=== PATIENT | female | born 1940 ===

== ENCOUNTER 2017-01-27 05:51 | Day surgery (SDC) | payer MEDICARE, MEDICAID ==
[2017-01-21 11:17] VITALS: BMI 28.1
[2017-01-27] MEDS ORDERED: ceFAZolin IV 1 gm in Dextrose 1 GM/50 ML BAG IVPB ONE (07:53)
[2017-01-27] MEDS ORDERED: Bupivacaine HCl 0.5% PF (10 ml) Inj ONE ×3 (07:54→08:57)
[2017-01-27] MEDS ORDERED: Lidocaine 2% Inj (20ml) ONE (07:54)
[2017-01-27] MEDS ORDERED: Propofol 10 mg/ml Inj (20 ML) ONE (08:08)
[2017-01-27] MEDS ORDERED: Midazolam 2 MG/2 ML VIAL ONE (08:08)
--- NOTE | 2017-01-27 08:08 | CP.PCM.PN ---
Objective - Vital Signs/Intake and Output Vital Signs (last 24 hours): Temp Pulse Resp BP Pulse Ox 97.9 F 59 L 18 141/66 97 01/27/17 06:11 01/27/17 06:11 01/27/17 06:11 01/27/17 06:11 01/27/17 06:11
[2017-01-27] MEDS ORDERED: Lactated Ringer's 1,000 ML IV ONE (08:10)
[2017-01-27] MEDS ORDERED: Dexamethasone 4 mg/1 ml ONE (08:53)
[2017-01-27] MEDS ORDERED: Lidocaine 2% w Epi 1:100,000 Inj IJ ONE (08:58)
--- NOTE | 2017-01-27 09:23 | PCM.SURG1 ---
Surgeon's Initial Post Op Note - Surgeon's Notes Surgeon: Dr. Diane Butt DPM Lawn Mower Operator: Dr. Aminata Carrasco DPM PGY-2 Type of Anesthesia: MAC, Local Anesthesia Administered By: Dr. Kc Pre-Operative Diagnosis: painful hardware right and painful hallux rigidus deformity right metatarsophalangeal joint Operative Findings: see operative report Post-Operative Diagnosis: same Operation Performed: removal of painful hardware and cheilectomy of 1st metatarsal right foot with excision of bone and soft tissue Specimen/Specimens Removed: bone, soft tissue, screw x 1 Estimated Blood Loss: EBL {In ML}: 5 Blood Products Given: N/A Drains Used: No Drains Post-Op Condition: Good Date of Surgery/Procedure: 01/27/17 Time of Surgery/Procedure: 08:00
[2017-01-27] MEDS ORDERED: HYDROmorphone 0.5 mg/0.5 ml ISec IVP PRN (09:25)
[2017-01-27] MEDS ORDERED: Acetaminophen-Codeine 300/30 mg Tab PO PRN (09:48)
[2017-01-27 11:04] VITALS: RESP 18
[2017-01-27 11:38] VITALS: BP 141/72; PULSE 58; TEMP 98.3; O2SAT 98
--- NOTE | 2017-01-27 16:39 | RAD ---
PROCEDURE: Right Foot Radiographs. HISTORY: s/p right foot surgry COMPARISON: 12/30/2016 FINDINGS: BONES: Partial resection medial 1st metatarsal. Prior screw has been removed here JOINTS: Arthropathic changes pronounced at the 2nd metatarsal phalangeal joint. 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
--- NOTE | 2017-01-28 09:33 | OP ---
PROCEDURE DATE: 01/27/2017 PREOPERATIVE DIAGNOSES: 1. Painful hardware of right first metatarsophalangeal joint. 2. Painful hallux rigidus deformity, right foot metatarsophalangeal joint. POSTOPERATIVE DIAGNOSES: 1. Painful hardware of right first metatarsophalangeal joint. 2. Painful hallux rigidus deformity, right foot metatarsophalangeal joint. PROCEDURES: 1. Removal of painful hardware from first metatarsal, right foot. 2. Cheilectomy of first metatarsal, right foot. SURGEON: Derek Butt DPM MEDICAL GENETICS DIRECTOR: Sepideh Carrasco DPM, PGY2. TYPE OF ANESTHESIA: MAC IV sedation with local. ANESTHESIA ADMINISTERED BY: Dr. Diego. INDICATIONS: The patient is a 76-year-old female with the above mentioned diagnoses. The patient has exhausted all conservative treatment measures at this time and now require surgical intervention. The patient signed the consent after careful explanation of all risks, benefits, complications, and alternatives for the surgical procedure. No guarantees were given nor implied. N.p.o status was confirmed prior to bringing the patient in to the operating room. The patient received 1 g of Ancef IV prior to the beginning of the procedure. PREPARATION: The patient was brought in to the operating room, placed in the operating table in supine position. A timeout was performed for identification of the correct patient and procedure. After induction of IV sedation,a local block was performed to the right foot consisting of a 1:1 mixture of 1% lidocaine plain and 0.5% Marcaine plain, 20 mL in total given. The right foot was then prepped and draped in the normal sterile manner. A well-padded Pneumatic ankle tourniquet was applied to the patient's right ankle prior to draping and was then inflated to 250 mmHg. The foot was then exsanguinated with Esmarch bandage and the procedure began. DESCRIPTION OF PROCEDURE: Procedure #1: removal painful hardware 1st metatarsal right foot Attention was then directed to the first metatarsophalangeal joint of the right foot and approximately 6 cm linear longitudinal incision was then made over the dorsal aspect of the first metatarsophalangeal joint using a #15 blade. The incision was then deepened to the subcutaneous tissues using sharp and blunt dissection down to the level of the capsule. Care was also made to create an incision, which was medial and parallel to the extensor hallucis longus tendon and involve the contour of the deformity. At this time, a linear type capsulotomy was performed over the dorsal aspect of the first metatarsophalangeal joint. The periosteal and capsular structures were then carefully dissected free of their osseous attachments and reflected medially and laterally thus exposing the head of the first metatarsal into the operative site. At this time, one Synthes 2-0 screw was then identified at the level of bone. Using the freer elevator, the soft tissue was then further dissected from the hardware and the screw was then removed from the first metatarsal using a R screwdriver. The screw was then removed from the bone and passed off the operative field and sent to pathology. Procedure #2: Cheilectomy at first metatarsal, right foot. Next, attention was then directed to the medial aspect of the first metatarsal head of the right foot utilizing a sagittal bone saw. The medial hypertrophic prominence of the medial aspect of the first metatarsal was then resected and passed from the operative field. The sagittal saw was then utilized to feather the dorsal distal aspect of the first metatarsal. A rasp was then utilized to just smooth any sharp or roughened edges. Correction of the deformity was assessed at this time and was noted to be excellent with significantly increased range of motion of the first metatarsophalangeal joint. The surgical site was then flushed with copious amounts of sterile normal saline solution. The periosteal and capsular structures were then re-approximated utilizing #2-0 Vicryl suture. The subcuticular tissues were then re-approximated using 3-0 Vicryl. The skin was then re-approximated using #4-0 nylon in an interrupted horizontal mattress suture techniques. 2 ml of epinephrine diluted with normal saline was then injected into the incision site. Next, 1 mL consisting of dexamethasone 4 mg was injected into the incision site followed by an additional 10 mL of 0.5% Marcaine plain in a block fashion to the first metatarsophalangeal joint. The surgical site was then dressed with Xeroform, 4x4, Kerlix, and an WADE compressive bandage. POSTOPERATIVE CONDITION: The patient tolerated the anesthesia and procedure well and was escorted to recovery room with vital signs stable and neurovascular status intact to the right foot. The patient will be weightbearing as tolerated in a surgical shoe. She is to keep the dressing clean, dry, and intact. She is to take pain medication as directed and she is to followup with Dr. Butt in the office within 1 week. Sepideh Carrasco DPM Derek Butt DPM MTDIvonne
== END 2017-01-27 11:30 | disposition home or self-care (01) ==
LOC: C.SDS 05:51
PROVIDERS: ATTEND Podiatrist
DX: M20.21 Hallux rigidus, right foot (principal); Z47.2 Encounter for removal of internal fixation device; T84.84XA Pain due to internal orthopedic prosthetic devices, implants and grafts, initial encounter
CPT/HCPCS: 20670; 28289; 73620; 88300; 88304; J0690; J1100; J2250; J2704; J3010; J7120

== ENCOUNTER 2017-04-26 15:41 | Emergency (ER) | payer MEDICARE, MEDICAID ==
[2017-04-26 15:41] VITALS: BMI 28.1
[2017-04-26 15:51] VITALS: O2SAT 95
[2017-04-26] MEDS ORDERED: Albuterol-Ipratrop 3 mg / 0.5 (3 ml) UD IH STA (17:31)
[2017-04-26] MEDS ORDERED: Albuterol-Ipratrop 3 mg / 0.5 (3 ml) UD ONE (17:58)
--- NOTE | 2017-04-26 18:33 | RAD ---
HISTORY: Cough COMPARISON: Chest x-ray performed 01/21/17 TECHNIQUE: Chest PA and lateral FINDINGS: Examination limited by habitus. LUNGS: Bilateral hilar prominence. Mildly prominent interstitial markings. Small nodular densities at the right lung base, possibly calcified granulomas. Please note that chest x-ray has limited sensitivity for the detection of pulmonary masses. PLEURA: No significant pleural effusion identified. No definite pneumothorax . CARDIOVASCULAR: Cardiomegaly. Ectatic aorta. OSSEOUS STRUCTURES: Osseous demineralization. Degenerative changes. Scoliosis. VISUALIZED UPPER ABDOMEN: Unremarkable. OTHER FINDINGS: None. IMPRESSION: Bilateral hilar prominence. Mildly prominent interstitial markings. Small nodular densities, right lung base possibly calcified granulomas. Cardiomegaly. Ectatic aorta.
--- NOTE | 2017-04-26 18:41 | C.PDOC ---
Time Seen by Provider: 04/26/17 17:06 Chief Complaint (Nursing): Cough, Cold, Congestion History Per: Patient Onset/Duration Of Symptoms: Days (1) Current Symptoms Are (Timing): Still Present Associated Symptoms: Cough, Myalgias, Nasal Congestion Severity: Moderate Recent travel outside of the [place]: No Additional History Per: Prior Records Past Medical History Reviewed: Historical Data, Nursing Documentation, Vital Signs Vital Signs: Last Vital Signs Temp 99 F 04/26/17 15:47 Pulse 100 H 04/26/17 15:47 Resp 18 04/26/17 15:47 BP 119/76 04/26/17 15:47 Pulse Ox 95 04/26/17 15:47 - Medical History PMH: Anemia, Arthritis, Asthma (NEVER HOSPITALIZED), Back Problems (CERVICAL RADICULOPATHY), Gastritis, HTN, Osteoporosis Surgical History: Endoscopy - [facility] Procedures CLOSED ENDOSCOPIC BIOPSY OF LARGE INTESTINE (09/26/14) ESOPHAGOGASTRODUODENOSCOPY [EGD] W/CLOSED BIOPSY (09/26/14) EXCISION OF DUODENUM, ENDO, DIAGN (04/17/15) EXCISION OF STOMACH, ENDO, DIAGN (04/17/15) INSPECTION OF LOWER INTESTINAL TRACT, ENDO (04/17/15) PACKED CELL TRANSFUSION (09/26/14) TRANSFUSE NONAUT RED BLOOD CELLS IN PERIPH VEIN, PERC (04/22/16) Family History: States: Diabetes - Social History Hx Tobacco Use: No Hx Alcohol Use: No Hx Substance Use: No - Immunization History Hx Tetanus Toxoid Vaccination: No Hx Influenza Vaccination: No Hx Pneumococcal Vaccination: No Review Of Systems Except As Marked, All Systems Reviewed And Found Negative. Constitutional: Positive for: Fever (subjective?) ENT: Positive for: Nose Congestion, Throat Pain (mild) Respiratory: Positive for: Cough. Negative for: Shortness of Breath, Hemoptysis Gastrointestinal: Negative for: Vomiting, Abdominal Pain, Diarrhea Genitourinary: Negative for: Dysuria Musculoskeletal: Negative for: Neck Pain Skin: Negative for: Rash Neurological: Negative for: Weakness, Numbness, Seizures Physical Exam - Physical Exam Appears: Non-toxic, No Acute Distress Skin: Normal Color, Warm, Dry, No Rash Head: Atraumatic, Normacephalic Eye(s): bilateral: Normal Inspection, PERRL, EOMI Oral Mucosa: Moist, No Drooling, No Trismus Throat: Erythema, No Exudate, No Drooling, No Mass Neck: Normal ROM, Supple Cardiovascular: Rhythm Regular Respiratory: Normal Breath Sounds, No Accessory Muscle Use Gastrointestinal/Abdominal: Soft, No Tenderness Back: No CVA Tenderness Extremity: Normal ROM Neurological/Psych: Oriented x3, Normal Motor, Normal Sensation ED Course And Treatment O2 Sat by Pulse Oximetry: 95 Pulse Ox Interpretation: Normal - Radiology CXR: Viewed By Me, Read By Radiologist CXR Interpretation: Yes: No Acute Disease, Cardiomegaly Reassessment Condition: Improved Disposition Counseled Patient/Family Regarding: Studies Performed, Diagnosis, Need For Followup, Rx Given - Disposition Referrals: Raghav Putnam MD [Staff Provider] - Disposition: HOME/ ROUTINE Disposition Time: 18:41 Condition: STABLE Additional Instructions: Follow up with your doctor. Return to the ER if you develop high fever, shortness of breath, worsening of symptoms or if you have any other concerns. Prescriptions: Acetaminophen [Tylenol Extra Strength] 2 tab PO Q6 PRN #30 tablet PRN Reason: Pain, Moderate (4-7) Albuterol HFA [Ventolin HFA 90 mcg/actuation (8 g)] 2 puff IH Q4 PRN #1 unit PRN Reason: Cough And Congestion Benzonatate 200 mg PO TID PRN #15 capsule PRN Reason: Cough Instructions: Cold Symptoms (ED) - Clinical Impression Clinical Impression: Upper respiratory infection
[2017-04-26 18:51] VITALS: BP 111/72; PULSE 85; RESP 20; TEMP 99.1
--- NOTE | 2017-04-28 13:13 | CARD ---
APPROVED REPORT EKG Measurement Heart [id number] <Conclusion> Sinus tachycardia with frequent premature ventricular complexes Otherwise normal ECG
== END 2017-04-26 19:00 | disposition home or self-care (01) ==
LOC: C.ER 15:41
DX: J06.9 Acute upper respiratory infection, unspecified (principal)

== ENCOUNTER 2018-04-20 02:23 | Inpatient (IN) | payer MEDICARE, MEDICAID ==
[2018-04-20 02:24] VITALS: BMI 28.1
--- NOTE | 2018-04-20 03:35 | C.PDOC ---
History Of Present Illness 77 year old female presents to the ER with a complaint of dizziness described as vertigo intermittently for the past few weeks that worsened today, associated with mild SOB and leg edema. Patient states she does not feel well. Denies fever, chills, or chest pain. Chief Complaint (Nursing): Dizziness/Lightheaded History Per: Patient History/Exam Limitations: no limitations Onset/Duration Of Symptoms: Days, Intermittent Episodes Current Symptoms Are (Timing): Still Present Seizure Or Post-ictal Symptoms: None Possible Causative Factor(s): Vertigo Fall Associated With With Symptoms: No Recent travel outside of the [place]: No - Symptoms Of CVA Associated Symptoms: denies: Impaired Speech, Seizure Activity, New Vision Deficit(Left), New Vision Deficit(Right), Decreased Ability To Walk, New Confusion Past Medical History Reviewed: Historical Data, Nursing Documentation, Vital Signs Vital Signs: Last Vital Signs Temp 98.1 F 04/20/18 02:29 Pulse 70 04/20/18 02:29 Resp 22 04/20/18 02:29 BP 147/67 04/20/18 02:29 Pulse Ox 95 04/20/18 02:29 - Medical History PMH: Anemia, Arthritis, Asthma (NEVER HOSPITALIZED), Back Problems (CERVICAL RADICULOPATHY), Gastritis, HTN, Osteoporosis Denies: Chronic Kidney Disease Surgical History: Endoscopy - [facility] Procedures CLOSED ENDOSCOPIC BIOPSY OF LARGE INTESTINE (09/26/14) ESOPHAGOGASTRODUODENOSCOPY [EGD] W/CLOSED BIOPSY (09/26/14) EXCISION OF DUODENUM, ENDO, DIAGN (04/17/15) EXCISION OF STOMACH, ENDO, DIAGN (04/17/15) INSPECTION OF LOWER INTESTINAL TRACT, ENDO (04/17/15) PACKED CELL TRANSFUSION (09/26/14) TRANSFUSE NONAUT RED BLOOD CELLS IN PERIPH VEIN, PERC (04/22/16) Family History: States: Diabetes - Social History Hx Tobacco Use: No Hx Alcohol Use: No Hx Substance Use: No - Immunization History Hx Tetanus Toxoid Vaccination: No Hx Influenza Vaccination: No Hx Pneumococcal Vaccination: No Review Of Systems Constitutional: Negative for: Fever, Chills Cardiovascular: Negative for: Chest Pain, Palpitations Respiratory: Positive for: Shortness of Breath (Mild). Negative for: Cough Gastrointestinal: Negative for: Nausea, Vomiting Musculoskeletal: Positive for: Other (Leg edema) Neurological: Positive for: Dizziness Physical Exam - Physical Exam Appears: Non-toxic, No Acute Distress Skin: Normal Color, Warm, Dry Head: Atraumatic, Normacephalic Eye(s): bilateral: Normal Inspection, PERRL, EOMI Nose: Normal Oral Mucosa: Moist Throat: Normal, No Erythema, No Exudate Neck: Normal, Supple Chest: Symmetrical, No Tenderness Cardiovascular: Rhythm Regular Respiratory: Normal Breath Sounds, No Rales, No Rhonchi, No Wheezing Gastrointestinal/Abdominal: Soft, No Tenderness Extremity: Other (Lower extremities with 2+ pitting edema) Neurological/Psych: Oriented x3, Normal Speech, Normal Motor, Normal Sensation, Other (No focal deficit) ED Course And Treatment - Laboratory Results Result Diagrams: 04/20/18 03:51 04/20/18 03:51 ECG: Interpreted By Me, Viewed By Me ECG Rhythm: Sinus Rhythm, L BBB ECG Interpretation: No Acute Changes, Abnormal Interpretation Of ECG: NSR, CLBBB, secondary ST-T changes , abnormal tracings. Rate From EC O2 Sat by Pulse Oximetry: 95 (Room air) Pulse Ox Interpretation: Normal Progress Note: CT head, EKG, blood work, and urinalysis ordered. IV fluids, antivert, and ativan administered. 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 I have reviewed the chart and agree that the record accurately reflects my personal performance of the history, physical exam, medical decision making, and the department course for this patient. I have also personally directed, reviewed, and agree with the discharge instructions and disposition.
[2018-04-20] MEDS ORDERED: Sodium Chloride 0.9% 1,000 ML ONE (03:52)
[2018-04-20 03:54] LABS: BASO # 0.1 K/uL (0.0-0.2); BASO % 0.6 % (0.0-2.0); EOS # 0.3 K/uL (0.0-0.7); HEMOGLOBIN 9.7 g/dL (11.0-16.0); LYMPH # 0.5 K/uL (1.0-4.3); LYMPH % 5.9 % (20.0-40.0); MEAN CELL VOLUME 68.4 fL (81.0-99.0); MEAN CORPUSCULAR HEMOGLOBIN 21.1 pg (27.0-31.0); MEAN CORPUSCULAR HGB CONC 30.8 g/dL (33.0-37.0); MONO # 0.8 K/uL (0.0-0.8); MONO % 10.1 % (0.0-10.0); NEUT # 6.7 K/uL (1.8-7.0); NEUT % 80.4 % (50.0-75.0); PLATELET COUNT 193 K/uL (130-400); RBC 4.62 Mil/uL (3.80-5.20); RED CELL DISTRIBUTION WIDTH 18.6 % (11.5-14.5); WHITE BLOOD COUNT 8.3 K/uL (4.8-10.8)
[2018-04-20 04:06] LABS: ALB/GLOB RATIO 1.3 (1.0-2.1); ALBUMIN 3.9 g/dL (3.5-5.0); ALT/SGPT 36 U/L (9-52); AST/SGOT 34 U/L (14-36); BLOOD UREA NITROGEN 17 mg/dL (7-17); CALCIUM 8.7 mg/dl (8.6-10.4); GFR NON-AFRICAN AMERICAN > 60
[2018-04-20 04:18] LABS: B-TYPE NATRIURETIC PEPTIDE 67.4 pg/mL (0-900)
--- NOTE | 2018-04-20 07:17 | CP.PCM.PN ---
Subjective - Date & Time of Evaluation Date of Evaluation: 04/20/18 Time of Evaluation: 07:17 - Subjective Subjective: Medicine Progress Note - Dr Burt Nelson's Service Patient is a 77 year old female with past medical history of iron deficiency anemia, arthritis, pancreatic cyst who presented to the emergency department for worsening dizziness and back pain. Dizziness is intermittent in nature. Patient is also complaining of bilateral lower extremity swelling and pain. Currently she states that the dizziness is the same. She denies any fevers, chills, nausea, vomiting, chest pain, palpitations, sob, abdominal pain, urinary incontinence, numbness/tingling. Objective - Vital Signs/Intake and Output Vital Signs (last 24 hours): Temp Pulse Resp BP Pulse Ox 97.9 F 65 22 145/66 95 04/20/18 05:49 04/20/18 05:12 04/20/18 05:12 04/20/18 05:12 04/20/18 06:25 - Medications Medications: Current Medications Enoxaparin Sodium (Lovenox) 40 mg SC DAILY [facility] Sodium Chloride (Sodium Chloride 0.45%) 500 mls @ 50 mls/hr IV .Q10H ONE Stop: 04/20/18 12:55 Last Admin: 04/20/18 03:54 Dose: 50 mls/hr Meclizine HCl (Antivert) 25 mg PO TID JOANN Pantoprazole Sodium (Protonix Ec Tab) 40 mg PO DAILY JOANN - Labs Labs: 04/20/18 03:51 04/20/18 03:51 - Constitutional Appears: Non-toxic, No Acute Distress - Head Exam Head Exam: ATRAUMATIC, NORMAL INSPECTION, NORMOCEPHALIC - Eye Exam Eye Exam: EOMI, Normal appearance - ENT Exam ENT Exam: Mucous Membranes Moist - Neck Exam Neck Exam: Full ROM - Respiratory Exam Respiratory Exam: Clear to Ausculation Bilateral, NORMAL BREATHING PATTERN. absent: Rales, Rhonchi, Wheezes - Cardiovascular Exam Cardiovascular Exam: REGULAR RHYTHM, +S1, +S2 - GI/Abdominal Exam GI & Abdominal Exam: Soft. absent: Guarding, Rigid, Tenderness - Extremities Exam Additional comments: Lower extremities: +2 pitting edema bilaterally - Neurological Exam Neurological Exam: Alert, Awake, Oriented x3 - Psychiatric Exam Psychiatric exam: Normal Affect, Normal Mood - Skin Skin Exam: Dry, Normal Color, Warm Assessment and Plan - Assessment and Plan (Free Text) Assessment: Intractable Dizziness -MRI brain ordered, patient to be premedicated with Ativan 1mg IVP x 1 -CT head: moderate chronic white matter and basal nuclei ischemic changes (see full report) -EEG ordered -Meclizine 25mg PO TID -Neurology on consult, Dr Dudley, help appreciated -Physical therapy ordered Abnormal UA -UA showing +3 leukocyte esterase and WBCs -Will start on Rocephin 1gm daily -F/U urine culture History of Iron deficiency Anemia -Hgb 9.7 on admission -Anemia studies ordered -IV iron ordered Bilateral lower extremity pain and swelling -Venous duplex ordered Low back pain -Motrin 600mg PO Q6H prn severe pain -Tramadol 50mg PO Q8H prn severe pain -Continue to monitor GI/DVT ppx -Protonix 40mg PO daily -Lovenox 40mg SC daily Plan discussed with Dr Omar Healy DO PGY-2
[2018-04-20 07:19] LABS: BANDS 1 % (0-2); EOSINOPHIL 4 % (0-4); LYMPHOCYTE 4 % (20-40); MONOCYTE 7 % (0-10); NEUTROPHIL 84 % (50-75); TOTAL CELLS COUNTED 100
[2018-04-20 07:20] LABS: PLATELET ESTIMATE NORMAL (NORMAL)
--- NOTE | 2018-04-20 07:43 | CP.PCM.CON ---
History of Present Illness - History of Present Illness History of Present Illness: CONSULT DICTATED VBI/PERIPHERAL NO SIGN OF NPH MRI/DEMENTIA WORK UP Past Patient History - Infectious Disease Hx of Infectious Diseases: None - Tetanus Immunizations Tetanus Immunization: Up to Date - Past Medical History & Family History Past Medical History?: Yes - Past Social History Smoking Status: Never Smoked - CARDIAC Hx Hypertension: Yes - PULMONARY Hx Asthma: Yes (NEVER HOSPITALIZED) - NEUROLOGICAL Hx Dizziness: Yes ("ON AND OFF") - HEENT Hx HEENT Problems: Yes - RENAL Hx Chronic Kidney Disease: No - ENDOCRINE/METABOLIC Hx Endocrine Disorders: No - HEMATOLOGICAL/ONCOLOGICAL Hx Anemia: Yes - INTEGUMENTARY Hx Dermatological Problems: No - MUSCULOSKELETAL/RHEUMATOLOGICAL Hx Arthritis: Yes Hx Osteoporosis: Yes - GASTROINTESTINAL Hx Gastritis: Yes - GENITOURINARY/GYNECOLOGICAL Hx Genitourinary Disorders: No - PSYCHIATRIC Hx Substance Use: No - SURGICAL HISTORY Hx Surgeries: Yes Hx Cataract Extraction: Yes (BILAT. ) Other/Comment: HX:Left knee arthroscopy 2000. HX: Lasha. carpal tunnel surgery. HX: HARDWARE RIGHT METARTASAL(SCREW) - ANESTHESIA Hx Anesthesia: Yes Hx Anesthesia Reactions: No Hx Malignant Hyperthermia: No Meds Allergies/Adverse Reactions: Allergies Allergy/AdvReac Type Severity Reaction Status Date / Time atorvastatin Allergy Verified 04/20/18 02:38 - Medications Medications: Current Medications Enoxaparin Sodium (Lovenox) 40 mg SC DAILY [facility] Sodium Chloride (Sodium Chloride 0.45%) 500 mls @ 50 mls/hr IV .Q10H ONE Stop: 04/20/18 12:55 Last Admin: 04/20/18 03:54 Dose: 50 mls/hr Meclizine HCl (Antivert) 25 mg PO TID JOANN Pantoprazole Sodium (Protonix Ec Tab) 40 mg PO DAILY [facility] Results - Vital Signs Recent Vital Signs: Last Vital Signs Temp 97.9 F 04/20/18 05:49 Pulse 65 04/20/18 05:12 Resp 22 04/20/18 05:12 BP 145/66 04/20/18 05:12 Pulse Ox 95 04/20/18 06:25 - Labs Result Diagrams: 04/20/18 03:51 04/20/18 03:51 Labs: Laboratory Results - last 24 hr 04/20/18 04/20/18 04/20/18 02:39 03:51 03:51 WBC 8.3 D RBC 4.62 Hgb 9.7 L D Hct 31.6 L MCV 68.4 L D MCH 21.1 L MCHC 30.8 L RDW 18.6 H Plt Count 193 MPV 9.0 Neut % (Auto) 80.4 H Lymph % (Auto) 5.9 L [place] % (Auto) 10.1 H Eos % (Auto) 3.0 Baso % (Auto) 0.6 Neut # (Auto) 6.7 Lymph # (Auto) 0.5 L [place] # (Auto) 0.8 Eos # (Auto) 0.3 Baso # (Auto) 0.1 Neutrophils % (Manual) 84 H Band Neutrophils % 1 Lymphocytes % (Manual) 4 L Monocytes % (Manual) 7 Eosinophils % (Manual) 4 Platelet Estimate Normal Sodium 138 Potassium 3.6 Chloride 104 Carbon Dioxide 28 Anion Gap 10 BUN 17 Creatinine 0.7 Est GFR ( Amer) > 60 Est GFR (Non-Af Amer) > 60 POC Glucose (mg/dL) 112 H Random Glucose 104 D Calcium 8.7 Total Bilirubin 0.8 AST 34 ALT 36 Alkaline Phosphatase 68 Troponin I 0.0180 NT-Pro-B Natriuret Pep 67.4 Total Protein 6.8 Albumin 3.9 Globulin 2.9 Albumin/Globulin Ratio 1.3
--- NOTE | 2018-04-20 07:54 | RAD ---
Date of service: 04/20/2018 PROCEDURE: CHEST RADIOGRAPH, 1 VIEW HISTORY: chest discomfort COMPARISON: 04/26/2017 FINDINGS: LUNGS: . Lung volumes slightly shallow-less now than before. . No interval consolidation. Sub cm granulomas noted most conspicuous at right lung base.-similar PLEURA: No pneumothorax or significant appearing pleural fluid seen. Apparent left inferolateral pleural thickening--similar appearance CARDIOVASCULAR: There is presence of aortic atherosclerotic calcification on x-ray.Cardiomegaly-similar. Probable mild pulmonary venous congestion-accentuated with current shallower lung volumes OSSEOUS STRUCTURES: Thoracic spondylosis. Bilateral shoulder arthrosis. VISUALIZED UPPER ABDOMEN: Normal. OTHER FINDINGS: None. IMPRESSION: Current lung volumes more shallow than before. No interval consolidation. Cardiomegaly similar. Probable slight increased pulmonary venous congestion-accentuated with more shallow lung volumes as above. Granulomatous disease-similar. Apparent left inferolateral pleural thickening similar appearance
--- NOTE | 2018-04-20 10:16 | CT ---
Date of service: 04/20/2018 PROCEDURE: CT HEAD WITHOUT CONTRAST. HISTORY: Headache COMPARISON: Comparison made with CT scan brain 04/01/2015. TECHNIQUE: Axial computed tomography images were obtained through the head/brain without intravenous contrast. Radiation dose: Total exam DLP = 983.62 mGy-cm. This CT exam was performed using one or more of the following dose reduction techniques: Automated exposure control, adjustment of the mA and/or kV according to patient size, and/or use of iterative reconstruction technique. FINDINGS: HEMORRHAGE: No acute parenchymal, subarachnoid or extra-axial hemorrhage.. BRAIN: Moderate diffuse and confluent chronic white matter ischemic changes seen extending peripherally into the deep and subcortical regions of both cerebral hemispheres. There also appears to be some extension of these changes into the white matter tracts of both basal nuclei. Scattered more discrete bilateral basal nuclei lacunar type infarcts also present. Moderate to fairly significant central volume loss evidenced by disproportionate enlargement of the ventricles compared the sulci. Mild vascular calcifications both carotid siphons VENTRICLES: Moderate dilatation of the 3rd and lateral ventricles likely due to central volume loss.. CALVARIUM: No acute calvarial fractures.. PARANASAL SINUSES: Unremarkable as visualized. No significant inflammatory changes. MASTOID AIR CELLS: Unremarkable as visualized. No inflammatory changes. OTHER FINDINGS: Changes of bilateral cataract surgery. IMPRESSION: Moderate chronic white matter and basal nuclei ischemic changes.
[2018-04-20] MEDS: Pantoprazole 40 mg EC Tab PO SCH (10:26)
[2018-04-20] MEDS: Enoxaparin 40 mg Syringe SC SCH (10:26)
[2018-04-20 10:42] LABS: SQUAMOUS EPITHIAL 3 /hpf (0-5); URINE BACTERIA RARE (<OCC); URINE BILIRUBIN NEGATIVE (NEGATIVE); URINE BLOOD NEGATIVE (NEGATIVE); URINE CLARITY Clear (Clear); URINE COLOR Yellow (YELLOW); URINE GLUCOSE (UA) NORMAL (Normal); URINE LEUKOCYTE ESTERASE 3+ Leu/uL (Negative); URINE PROTEIN NEGATIVE (NEGATIVE); URINE UROBILINOGEN NORMAL mg/dL (0.2-1.0)
--- NOTE | 2018-04-20 11:14 | CARD ---
APPROVED REPORT Date of service: 04/20/2018 EKG Measurement Heart [id number] <Conclusion> Normal sinus rhythm Left bundle branch block Abnormal ECG
[2018-04-20 11:28] LABS: IRON 24 ug/dL (37-170)
[2018-04-20 11:35] LABS: TRANSFERRIN 351.23 mg/dL (206-381)
[2018-04-20 11:45] LABS: % IRON SATURATION 5 (20-55); TOTAL IRON BINDING CAPACITY 446 ug/dL (250-450)
[2018-04-20 11:47] LABS: FREE T4 0.99 ng/dL (0.78-2.19); PROLACTIN 25.3 ng/mL (3.0-18.9)
[2018-04-20 12:35] LABS: FOLATE > 20.0 ng/mL
--- NOTE | 2018-04-20 14:32 | CON ---
DATE: 04/20/2018 ATTENDING PHYSICIAN: Mandi Nelson MD LOCATION: The patient's room number 658, bed A. REASON FOR CONSULTATION: Abnormal CT scan, the dizziness. CHIEF COMPLAINT: The patient was brought into [facility] with a history of dizziness. From neurological point of view, I was called into evaluate her because of her dizziness as well as abnormal CAT scan. HISTORY OF PRESENT ILLNESS: Francoise Degroot is a 77-year-old right-handed [place]-speaking female presenting with dizziness for the last few weeks. This dizziness associating with some losing balance. However, she has been using the cane and walker. This dizziness, not associating with any worsening mental status or bowel or urinary incontinence. Her mental status has been stable, however, she admitted she had memory impairment. PAST MEDICAL HISTORY: Anemia, arthritis, asthma, severe back problem. Gastritis, hypertension, osteoporosis. PERSONAL HISTORY: She denies smoking or alcohol use. ALLERGIES: NO KNOWN ALLERGIES. REVIEW OF SYSTEM: A 12-point system being reviewed. From neuro, dizziness. MEDICATIONS: Protonix, Antivert, Lovenox and IV fluids. PHYSICAL EXAMINATION: VITAL SIGNS: Blood pressure of 145/66, mean artery pressure of 92, respiratory 18, temperature 97.9, pulse rate 65 regular. NECK: Supple. No carotid bruits. HEART: Sounds regular. CHEST: Fair air entry. EXTREMITIES: 1+ pitting edema. NEUROLOGIC EXAMINATION: Mental status examination, the patient is examined only in [place]. She knows she is in the hospital. She could able to complain what the problems brought her into the hospital. However, she could not know the year and name of the president. She follows one to two step command, mild right and left confusion. Cranial nerve examination, visual field intact. Pupil reactive to light. Extraocular movement decreased in all direction. No facial sensory deficit. No facial asymmetry. Tongue is moist. Good gag. Motor examination, outstretched hand with eyes closed, no drift noted. Power is symmetric on either side. Lower extremities, pain limited exam from her back. Deep tendon reflexes, biceps, brachialis, triceps 1+ both knee and ankle are absent. Plantars are downgoing. Sensory examination, respond to pain symmetrically on both sides. Coordination: She attempting [id number] is intact. Gait is deferred at this time because of discomfort at present. CONCLUSION: Francoise Degroot is presenting with dizziness which peripheral in origin; however, central causes should be ruled out such as vertebrobasilar insufficiency. The current examination does not favoring me to think normal pressure hydrocephalus. She does not have urinary incontinence and new change in gait problem. Blood workup, WBC 8.3, hemoglobin 9.7, hematocrit 31.6, platelet 193. Sodium 138, potassium 3.6, chloride 104, bicarbonate 28, BUN 17, creatinine 0.7, GFR more than 60, glucose 112. CT of the head being reviewed showed hydrocephalus ex vacuo. The patient also showed evidence of atrophy probably age-related dementia as well from the age-related presentation. RECOMMENDATIONS: MRI of the brain to rule out of the periependymal permeation. Dementia workup as per the order. The patient should get out of the bed and physical therapy should be started to improve her gait. The patient will be followed closely with you. Alfonso Dudley MD
--- NOTE | 2018-04-20 14:43 | MRI ---
Date of service: 04/20/2018 PROCEDURE: MRI BRAIN WITHOUT CONTRAST HISTORY: HYDROCEPHALUS COMPARISON: None available. TECHNIQUE: Multiplanar, multisequence MR images of the brain were obtained without intravenous contrast enhancement. FINDINGS: HEMORRHAGE: No acute parenchymal, subarachnoid or extra-axial hemorrhage. No evidence of hemosiderin deposition identified on gradient echo weighted sequence. DWI: No evidence of an acute or early subacute infarction seen on diffusion imaging.. BRAIN PARENCHYMA: Moderate diffuse/confluent chronic white matter ischemic changes again seen extending peripherally into the deep and subcortical white matter both cerebral hemispheres. There is extension of these changes into the white matter tracts of both basal nuclei with multiple more discrete chronic appearing infarcts scattered about the deep and subcortical white matter and both basal nuclei. None of these changes exhibit restricted diffusion. Moderate to significant generalized volume loss. No obvious parenchymal nor extra-axial mass or collection seen on this noncontrast study. VENTRICLES: Unremarkable. No hydrocephalus. CRANIUM: Calvarium appears grossly unremarkable.. ORBITS: Changes of bilateral cataract surgery again seen. PARANASAL SINUSES/MASTOIDS: Clear VASCULAR SYSTEM: Skul visualized major vascular flow voids at skull base patent.. OTHER FINDINGS: None. IMPRESSION: No acute intracranial hemorrhage or infarct. Moderate diffuse/confluent chronic white matter ischemic changes again seen extending peripherally into the deep and subcortical white matter both cerebral hemispheres. There is extension of these changes into the white matter tracts of both basal nuclei with multiple more discrete chronic appearing infarcts scattered about the deep and subcortical white matter and both basal nuclei. None of these changes exhibit restricted diffusion. Moderate to significant generalized volume loss.
[2018-04-20] MEDS ORDERED: Ferric Sodium Gluconat Complex 62.5 mg/5 ml Vial IVPB SCH (15:30)
[2018-04-20] MEDS ORDERED: Ferric Sodium Gluconat Complex 125 MG in Sodium Chloride 0.9% 100 ML IVPB SCH (16:00)
--- NOTE | 2018-04-20 17:50 | CP.PCM.HP ---
Past Patient History - Infectious Disease Hx of Infectious Diseases: None - Tetanus Immunizations Tetanus Immunization: Up to Date - Past Medical History & Family History Past Medical History?: Yes - Past Social History Smoking Status: Never Smoked - CARDIAC Hx Hypertension: Yes - PULMONARY Hx Asthma: Yes (NEVER HOSPITALIZED) - NEUROLOGICAL Hx Dizziness: Yes ("ON AND OFF") - HEENT Hx HEENT Problems: Yes - RENAL Hx Chronic Kidney Disease: No - ENDOCRINE/METABOLIC Hx Endocrine Disorders: No - HEMATOLOGICAL/ONCOLOGICAL Hx Anemia: Yes - INTEGUMENTARY Hx Dermatological Problems: No - MUSCULOSKELETAL/RHEUMATOLOGICAL Hx Arthritis: Yes - GASTROINTESTINAL Hx Gastritis: Yes - GENITOURINARY/GYNECOLOGICAL Hx Genitourinary Disorders: No - PSYCHIATRIC Hx Substance Use: No - SURGICAL HISTORY Hx Surgeries: Yes Hx Cataract Extraction: Yes (BILAT. ) Other/Comment: HX:Left knee arthroscopy 2000. HX: Lasha. carpal tunnel surgery. HX: HARDWARE RIGHT METARTASAL(SCREW) - ANESTHESIA Hx Anesthesia: Yes Hx Anesthesia Reactions: No Hx Malignant Hyperthermia: No Meds Allergies/Adverse Reactions: Allergies Allergy/AdvReac Type Severity Reaction Status Date / Time atorvastatin Allergy Verified 04/20/18 02:38 Physical Exam - Constitutional Appears: Well - Head Exam Head Exam: ATRAUMATIC, NORMAL INSPECTION, NORMOCEPHALIC - Eye Exam Eye Exam: EOMI, Normal appearance, PERRL Pupil Exam: NORMAL ACCOMODATION, PERRL - ENT Exam ENT Exam: Mucous Membranes Moist, Normal Exam - Neck Exam Neck exam: Positive for: Normal Inspection - Respiratory Exam Respiratory Exam: Decreased Breath Sounds - Cardiovascular Exam Cardiovascular Exam: REGULAR RHYTHM, +S1, +S2 - GI/Abdominal Exam GI & Abdominal Exam: Diminished Bowel Sounds, Soft - Rectal Exam Rectal Exam: Deferred Results - Vital Signs Recent Vital Signs: Last Vital Signs Temp 99.1 F 04/20/18 15:03 Pulse 67 04/20/18 15:53 Resp 20 04/20/18 15:03 BP 148/81 04/20/18 15:03 Pulse Ox 92 L 04/20/18 15:53 - Labs Result Diagrams: 04/20/18 03:51 04/20/18 03:51 Labs: Laboratory Results - last 24 hr 04/20/18 04/20/18 04/20/18 02:39 03:51 03:51 WBC 8.3 D RBC 4.62 Hgb 9.7 L D Hct 31.6 L MCV 68.4 L D MCH 21.1 L MCHC 30.8 L RDW 18.6 H Plt Count 193 MPV 9.0 Neut % (Auto) 80.4 H Lymph % (Auto) 5.9 L [place] % (Auto) 10.1 H Eos % (Auto) 3.0 Baso % (Auto) 0.6 Neut # (Auto) 6.7 Lymph # (Auto) 0.5 L [place] # (Auto) 0.8 Eos # (Auto) 0.3 Baso # (Auto) 0.1 Neutrophils % (Manual) 84 H Band Neutrophils % 1 Lymphocytes % (Manual) 4 L Monocytes % (Manual) 7 Eosinophils % (Manual) 4 Platelet Estimate Normal Retic Count Sodium 138 Potassium 3.6 Chloride 104 Carbon Dioxide 28 Anion Gap 10 BUN 17 Creatinine 0.7 Est GFR ( Amer) > 60 Est GFR (Non-Af Amer) > 60 POC Glucose (mg/dL) 112 H Random Glucose 104 D Hemoglobin A1c Calcium 8.7 Iron TIBC % Saturation Transferrin Ferritin Total Bilirubin 0.8 AST 34 ALT 36 Alkaline Phosphatase 68 Troponin I 0.0180 NT-Pro-B Natriuret Pep 67.4 Total Protein 6.8 Albumin 3.9 Globulin 2.9 Albumin/Globulin Ratio 1.3 Vitamin B12 Folate Free T4 TSH 3rd Generation Prolactin Urine Color Urine Clarity Urine pH Ur Specific [place] Urine Protein Urine Glucose (UA) Urine Ketones Urine Blood Urine Nitrate Urine Bilirubin Urine Urobilinogen Ur Leukocyte Esterase Urine WBC (Auto) Urine RBC (Auto) Ur Squamous Epith Cells Urine Bacteria 04/20/18 04/20/18 04/20/18 10:19 11:05 11:05 WBC RBC Hgb Hct MCV MCH MCHC RDW Plt Count MPV Neut % (Auto) Lymph % (Auto) [place] % (Auto) Eos % (Auto) Baso % (Auto) Neut # (Auto) Lymph # (Auto) [place] # (Auto) Eos # (Auto) Baso # (Auto) Neutrophils % (Manual) Band Neutrophils % Lymphocytes % (Manual) Monocytes % (Manual) Eosinophils % (Manual) Platelet Estimate Retic Count Sodium Potassium Chloride Carbon Dioxide Anion Gap BUN Creatinine Est GFR ( Amer) Est GFR (Non-Af Amer) POC Glucose (mg/dL) Random Glucose Hemoglobin A1c Calcium Iron TIBC % Saturation Transferrin 351.23 Ferritin 6.0 Total Bilirubin AST ALT Alkaline Phosphatase Troponin I NT-Pro-B Natriuret Pep Total Protein Albumin Globulin Albumin/Globulin Ratio Vitamin B12 314 Folate > 20.0 Free T4 0.99 TSH 3rd Generation 1.96 Prolactin 25.3 H Urine Color Yellow Urine Clarity Clear Urine pH 6.0 Ur Specific [place] 1.013 Urine Protein Negative Urine Glucose (UA) Normal Urine Ketones Negative Urine Blood Negative Urine Nitrate Negative Urine Bilirubin Negative Urine Urobilinogen Normal Ur Leukocyte Esterase 3+ H Urine WBC (Auto) 28 H Urine RBC (Auto) 3 Ur Squamous Epith Cells 3 Urine Bacteria Rare 04/20/18 04/20/18 04/20/18 11:05 11:05 14:01 WBC RBC Hgb Hct MCV MCH MCHC RDW Plt Count MPV Neut % (Auto) Lymph % (Auto) [place] % (Auto) Eos % (Auto) Baso % (Auto) Neut # (Auto) Lymph # (Auto) [place] # (Auto) Eos # (Auto) Baso # (Auto) Neutrophils % (Manual) Band Neutrophils % Lymphocytes % (Manual) Monocytes % (Manual) Eosinophils % (Manual) Platelet Estimate Retic Count 0.9 Sodium Potassium Chloride Carbon Dioxide Anion Gap BUN Creatinine Est GFR ( Amer) Est GFR (Non-Af Amer) POC Glucose (mg/dL) Random Glucose Hemoglobin A1c 6.3 Calcium Iron 24 L TIBC 446 % Saturation 5 L Transferrin Ferritin Total Bilirubin AST ALT Alkaline Phosphatase Troponin I NT-Pro-B Natriuret Pep Total Protein Albumin Globulin Albumin/Globulin Ratio Vitamin B12 Folate Free T4 TSH 3rd Generation Prolactin Urine Color Urine Clarity Urine pH Ur Specific [place] Urine Protein Urine Glucose (UA) Urine Ketones Urine Blood Urine Nitrate Urine Bilirubin Urine Urobilinogen Ur Leukocyte Esterase Urine WBC (Auto) Urine RBC (Auto) Ur Squamous Epith Cells Urine Bacteria
[2018-04-20] MEDS: Ferric Sodium Gluconat Complex 125 MG in Sodium Chloride 0.9% 100 ML IVPB SCH (19:19)
[2018-04-20] MEDS ORDERED: Home Med 1 UNIT OU SCH (22:00)
[2018-04-21 07:10] LABS: BASO % 0.6 % (0.0-2.0); EOS # 0.2 K/uL (0.0-0.7); EOS % 3.6 % (0.0-4.0); HEMOGLOBIN 10.3 g/dL (11.0-16.0); LYMPH # 1.1 K/uL (1.0-4.3); LYMPH % 19.2 % (20.0-40.0); MEAN CELL VOLUME 69.2 fL (81.0-99.0); MEAN CORPUSCULAR HEMOGLOBIN 20.6 pg (27.0-31.0); MEAN CORPUSCULAR HGB CONC 29.7 g/dL (33.0-37.0); MEAN PLATELET VOLUME 8.5 fL (7.2-11.7); MONO # 0.6 K/uL (0.0-0.8); MONO % 10.8 % (0.0-10.0); NEUT # 3.7 K/uL (1.8-7.0); NEUT % 65.8 % (50.0-75.0); NRBC % 0.1 % (0.0-2.0); RBC 5.01 Mil/uL (3.80-5.20); RED CELL DISTRIBUTION WIDTH 18.6 % (11.5-14.5); WHITE BLOOD COUNT 5.7 K/uL (4.8-10.8)
[2018-04-21 07:18] LABS: ALB/GLOB RATIO 1.3 (1.0-2.1); ALBUMIN 3.8 g/dL (3.5-5.0); ALT/SGPT 24 U/L (9-52); AST/SGOT 38 U/L (14-36); BLOOD UREA NITROGEN 15 mg/dL (7-17); CALCIUM 8.6 mg/dl (8.6-10.4); GFR NON-AFRICAN AMERICAN > 60
--- NOTE | 2018-04-21 07:32 | CP.PCM.CON ---
History of Present Illness - History of Present Illness History of Present Illness: Dizziness and back pain HPI: 77-year-old female presenting with complaints of an episode of dizziness and vertigo intermittently for the past few weeks associated with mild shortness of breath and lower extremity edema. Patient denied having any chest pain shortness of breath fevers or chills. Review of Systems - Review of Systems Systems not reviewed;Unavailable: Acuity of Condition - Constitutional Constitutional: As Per HPI - EENT Eyes: As Per HPI Ears: As Per HPI Nose/Mouth/Throat: As Per HPI - Breasts Breasts: As Per HPI - Cardiovascular Cardiovascular: As Per HPI - Respiratory Respiratory: As Per HPI - Gastrointestinal Gastrointestinal: As Per HPI - Genitourinary Genitourinary: As Per HPI - Reproductive: Female Reproductive:Female: As Per HPI - Menstruation Menstruation: As Per HPI - Musculoskeletal Musculoskeletal: As Per HPI - Integumentary Integumentary: As Per HPI - Neurological Neurological: As Per HPI - Psychiatric Psychiatric: As Per HPI - Endocrine Endocrine: As Per HPI - Hematologic/Lymphatic Hematologic: As Per HPI Past Patient History - Infectious Disease Hx of Infectious Diseases: None - Tetanus Immunizations Tetanus Immunization: Up to Date - Past Medical History & Family History Past Medical History?: Yes - Past Social History Smoking Status: Never Smoked - CARDIAC Hx Hypertension: Yes - PULMONARY Hx Asthma: Yes (NEVER HOSPITALIZED) - NEUROLOGICAL Hx Dizziness: Yes ("ON AND OFF") - HEENT Hx HEENT Problems: Yes - RENAL Hx Chronic Kidney Disease: No - ENDOCRINE/METABOLIC Hx Endocrine Disorders: No - HEMATOLOGICAL/ONCOLOGICAL Hx Anemia: Yes - INTEGUMENTARY Hx Dermatological Problems: No - MUSCULOSKELETAL/RHEUMATOLOGICAL Hx Arthritis: Yes - GASTROINTESTINAL Hx Gastritis: Yes - GENITOURINARY/GYNECOLOGICAL Hx Genitourinary Disorders: No - PSYCHIATRIC Hx Substance Use: No - SURGICAL HISTORY Hx Surgeries: Yes Hx Cataract Extraction: Yes (BILAT. ) Other/Comment: HX:Left knee arthroscopy 2000. HX: Lasha. carpal tunnel surgery. HX: HARDWARE RIGHT METARTASAL(SCREW) - ANESTHESIA Hx Anesthesia: Yes Hx Anesthesia Reactions: No Hx Malignant Hyperthermia: No Meds Allergies/Adverse Reactions: Allergies Allergy/AdvReac Type Severity Reaction Status Date / Time atorvastatin Allergy Verified 04/20/18 02:38 - Medications Medications: Current Medications Donepezil HCl (Aricept) 5 mg PO HS JOANN Enoxaparin Sodium (Lovenox) 40 mg SC DAILY [facility] Last Admin: 04/20/18 10:26 Dose: 40 mg Home Med (Home Med) 1 unit OU HS [facility] Ferric Sodium Gluconate Complex 125 mg/ Sodium Chloride 110 mls @ 100 mls/hr IVPB Q24H [facility] Stop: 04/24/18 19:35 Last Admin: 04/20/18 19:19 Dose: 100 mls/hr Ceftriaxone Sodium 1 gm/ (Sodium Chloride) 100 mls @ 100 mls/hr IVPB DAILY [facility]; Protocol Ibuprofen (Motrin Tab) 600 mg PO Q8H PRN PRN Reason: Pain, moderate (4-7) Last Admin: 04/20/18 15:02 Dose: 600 mg Lorazepam (Ativan) 1 mg IVP ONCE PRN PRN Reason: Anxiety Last Admin: 04/20/18 10:57 Dose: 1 mg Meclizine HCl (Antivert) 25 mg PO TID [facility] Last Admin: 04/20/18 17:57 Dose: 25 mg Pantoprazole Sodium (Protonix Ec Tab) 40 mg PO DAILY [facility] Last Admin: 04/20/18 10:26 Dose: 40 mg Pneumococcal Polyvalent Vaccine (Pneumovax 23 Vaccine) 0.5 ml IM .ONCE ONE Stop: 04/22/18 10:01 Tramadol HCl (Ultram) 50 mg PO Q8H PRN PRN Reason: Pain, severe (8-10) Last Admin: 04/21/18 06:54 Dose: 50 mg Physical Exam - Constitutional Appears: Well - Head Exam Head Exam: ATRAUMATIC, NORMAL INSPECTION, NORMOCEPHALIC - Eye Exam Eye Exam: EOMI, Normal appearance, PERRL Pupil Exam: NORMAL ACCOMODATION, PERRL - ENT Exam ENT Exam: Mucous Membranes Moist, Normal Exam - Neck Exam Neck exam: Positive for: Normal Inspection - Respiratory Exam Respiratory Exam: Clear to Auscultation Bilateral, NORMAL BREATHING PATTERN - Cardiovascular Exam Cardiovascular Exam: REGULAR RHYTHM, +S1, +S2, Systolic Murmur - GI/Abdominal Exam GI & Abdominal Exam: Normal Bowel Sounds, Soft. absent: Tenderness - Extremities Exam Extremities exam: Positive for: normal inspection - Back Exam Back exam: NORMAL INSPECTION - Neurological Exam Neurological exam: Alert, CN II-XII Intact, Normal Gait, Oriented x3, Reflexes N ormal - Psychiatric Exam Psychiatric exam: Normal Affect, Normal Mood - Skin Skin Exam: Dry, Intact, Normal Color, Warm Results - Vital Signs Recent Vital Signs: Last Vital Signs Temp 98.7 F 04/20/18 23:35 Pulse 72 04/21/18 04:16 Resp 20 04/20/18 23:35 BP 128/69 04/20/18 23:35 Pulse Ox 98 04/20/18 23:35 - Labs Result Diagrams: 04/21/18 06:52 04/21/18 06:52 Labs: Laboratory Results - last 24 hr 04/20/18 04/20/18 04/20/18 10:19 11:05 11:05 WBC RBC Hgb Hct MCV MCH MCHC RDW Plt Count MPV Neut % (Auto) Lymph % (Auto) [place] % (Auto) Eos % (Auto) Baso % (Auto) Neut # (Auto) Lymph # (Auto) [place] # (Auto) Eos # (Auto) Baso # (Auto) Retic Count Sodium Potassium Chloride Carbon Dioxide Anion Gap BUN Creatinine Est GFR ( Amer) Est GFR (Non-Af Amer) Random Glucose Hemoglobin A1c Calcium Phosphorus Magnesium Iron TIBC % Saturation Transferrin 351.23 Ferritin 6.0 Total Bilirubin AST ALT Alkaline Phosphatase Total Protein Albumin Globulin Albumin/Globulin Ratio Vitamin B12 314 Folate > 20.0 Free T4 0.99 TSH 3rd Generation 1.96 Prolactin 25.3 H Urine Color Yellow Urine Clarity Clear Urine pH 6.0 Ur Specific [place] 1.013 Urine Protein Negative Urine Glucose (UA) Normal Urine Ketones Negative Urine Blood Negative Urine Nitrate Negative Urine Bilirubin Negative Urine Urobilinogen Normal Ur Leukocyte Esterase 3+ H Urine WBC (Auto) 28 H Urine RBC (Auto) 3 Ur Squamous Epith Cells 3 Urine Bacteria Rare 04/20/18 04/20/18 04/20/18 11:05 11:05 14:01 WBC RBC Hgb Hct MCV MCH MCHC RDW Plt Count MPV Neut % (Auto) Lymph % (Auto) [place] % (Auto) Eos % (Auto) Baso % (Auto) Neut # (Auto) Lymph # (Auto) [place] # (Auto) Eos # (Auto) Baso # (Auto) Retic Count 0.9 Sodium Potassium Chloride Carbon Dioxide Anion Gap BUN Creatinine Est GFR ( Amer) Est GFR (Non-Af Amer) Random Glucose Hemoglobin A1c 6.3 Calcium Phosphorus Magnesium Iron 24 L TIBC 446 % Saturation 5 L Transferrin Ferritin Total Bilirubin AST ALT Alkaline Phosphatase Total Protein Albumin Globulin Albumin/Globulin Ratio Vitamin B12 Folate Free T4 TSH 3rd Generation Prolactin Urine Color Urine Clarity Urine pH Ur Specific [place] Urine Protein Urine Glucose (UA) Urine Ketones Urine Blood Urine Nitrate Urine Bilirubin Urine Urobilinogen Ur Leukocyte Esterase Urine WBC (Auto) Urine RBC (Auto) Ur Squamous Epith Cells Urine Bacteria 04/21/18 04/21/18 06:52 06:52 WBC 5.7 RBC 5.01 Hgb 10.3 L Hct 34.7 MCV 69.2 L MCH 20.6 L MCHC 29.7 L RDW 18.6 H Plt Count 210 MPV 8.5 Neut % (Auto) 65.8 Lymph % (Auto) 19.2 L [place] % (Auto) 10.8 H Eos % (Auto) 3.6 Baso % (Auto) 0.6 Neut # (Auto) 3.7 Lymph # (Auto) 1.1 [place] # (Auto) 0.6 Eos # (Auto) 0.2 Baso # (Auto) 0.0 Retic Count Sodium 138 Potassium 4.1 Chloride 102 Carbon Dioxide 29 Anion Gap 10 BUN 15 Creatinine 0.7 Est GFR ( Amer) > 60 Est GFR (Non-Af Amer) > 60 Random Glucose 87 Hemoglobin A1c Calcium 8.6 Phosphorus 3.4 Magnesium 1.9 Iron TIBC % Saturation Transferrin Ferritin Total Bilirubin 0.4 AST 38 H ALT 24 Alkaline Phosphatase 68 Total Protein 6.8 Albumin 3.8 Globulin 3.0 Albumin/Globulin Ratio 1.3 Vitamin B12 Folate Free T4 TSH 3rd Generation Prolactin Urine Color Urine Clarity Urine pH Ur Specific [place] Urine Protein Urine Glucose (UA) Urine Ketones Urine Blood Urine Nitrate Urine Bilirubin Urine Urobilinogen Ur Leukocyte Esterase Urine WBC (Auto) Urine RBC (Auto) Ur Squamous Epith Cells Urine Bacteria Assessment & Plan (1) Dizziness Assessment and Plan: etiology ? neurologic vs. cardiac echo telemetry Status: Acute Priority: Medium (2) HTN (hypertension) Assessment and Plan: resume norvasc orthostatics Status: Acute (3) Back pain, chronic Status: Acute (4) Pancreatic mass Status: Acute
--- NOTE | 2018-04-21 08:19 | CP.PCM.PN ---
Subjective - Date & Time of Evaluation Date of Evaluation: 04/21/18 Time of Evaluation: 08:18 - Subjective Subjective: MRI does not show hydrocechalus Pt admitted for vertigo If there is a concern for NPH please refer to office Does not need to remain in hospital for this evaluation Objective - Vital Signs/Intake and Output Vital Signs (last 24 hours): Temp Pulse Resp BP Pulse Ox 98.7 F 72 20 128/69 98 04/20/18 23:35 04/21/18 04:16 04/20/18 23:35 04/20/18 23:35 04/20/18 23:35 Intake and Output: 04/21/18 04/21/18 06:59 18:59 Intake Total 460 Balance 460 - Medications Medications: Current Medications Donepezil HCl (Aricept) 5 mg PO HS [facility] Enoxaparin Sodium (Lovenox) 40 mg SC DAILY [facility] Last Admin: 04/20/18 10:26 Dose: 40 mg Home Med (Home Med) 1 unit OU HS [facility] Ferric Sodium Gluconate Complex 125 mg/ Sodium Chloride 110 mls @ 100 mls/hr IVPB Q24H [facility] Stop: 04/24/18 19:35 Last Admin: 04/20/18 19:19 Dose: 100 mls/hr Ceftriaxone Sodium 1 gm/ (Sodium Chloride) 100 mls @ 100 mls/hr IVPB DAILY [facility]; Protocol Ibuprofen (Motrin Tab) 600 mg PO Q8H PRN PRN Reason: Pain, moderate (4-7) Last Admin: 04/20/18 15:02 Dose: 600 mg Lorazepam (Ativan) 1 mg IVP ONCE PRN PRN Reason: Anxiety Last Admin: 04/20/18 10:57 Dose: 1 mg Meclizine HCl (Antivert) 25 mg PO TID [facility] Last Admin: 04/20/18 17:57 Dose: 25 mg Pantoprazole Sodium (Protonix Ec Tab) 40 mg PO DAILY [facility] Last Admin: 04/20/18 10:26 Dose: 40 mg Pneumococcal Polyvalent Vaccine (Pneumovax 23 Vaccine) 0.5 ml IM .ONCE ONE Stop: 04/22/18 10:01 Tramadol HCl (Ultram) 50 mg PO Q8H PRN PRN Reason: Pain, severe (8-10) Last Admin: 04/21/18 06:54 Dose: 50 mg - Labs Labs: 04/21/18 06:52 04/21/18 06:52
--- NOTE | 2018-04-21 08:21 | PN ---
DATE: 04/21/2018 NEUROLOGICAL PROBLEM: Dementia with abnormal CAT scan finding. PHYSICAL EXAMINATION: VITAL SIGNS: Blood pressure 128/69, mean arterial pressure of 88, respiratory rate is 18, temperature 98.7 with pulse rate 72 and regular. The patient is awake, alert, complaining of lower back pain restricting her ambulation. Rest of her examination is unchanged to compare with my previous examination. MRI of the brain showed no consistency of normal pressure hydrocephalus. However, the patient does show the periventricular ischemic changes consistent with small vessel disease. No acute pathologies. The patient should be placed on cholinesterase inhibitor for her dementia. Physical therapy to improve her gait. The patient will be followed closely with you. Alfonso Dudley MD
--- NOTE | 2018-04-21 11:06 | CP.PCM.PN ---
Subjective - Date & Time of Evaluation Date of Evaluation: 04/21/18 Time of Evaluation: 11:14 - Subjective Subjective: Medicine Note for Dr. Kenneth Nelson's Service Patient was seen and examined at bedside. Patient reports she feels well today. She denies any fevers, chills, chest pain, palpitations, sob, abdominal pain, nausea, vomiting, urinary incontinence, or numbness/tingling. Objective - Vital Signs/Intake and Output Vital Signs (last 24 hours): Temp Pulse Resp BP Pulse Ox 98.3 F 77 20 149/77 97 04/21/18 07:07 04/21/18 07:07 04/21/18 07:07 04/21/18 07:07 04/21/18 07:07 Intake and Output: 04/21/18 04/21/18 06:59 18:59 Intake Total 460 Balance 460 - Medications Medications: Current Medications Donepezil HCl (Aricept) 5 mg PO HS [facility] Enoxaparin Sodium (Lovenox) 40 mg SC DAILY [facility] Last Admin: 04/20/18 10:26 Dose: 40 mg Home Med (Home Med) 1 unit OU HS [facility] Ferric Sodium Gluconate Complex 125 mg/ Sodium Chloride 110 mls @ 100 mls/hr I VPB Q24H [facility] Stop: 04/24/18 19:35 Last Admin: 04/20/18 19:19 Dose: 100 mls/hr Ceftriaxone Sodium 1 gm/ (Sodium Chloride) 100 mls @ 100 mls/hr IVPB DAILY [facility]; Protocol Ibuprofen (Motrin Tab) 600 mg PO Q8H PRN PRN Reason: Pain, moderate (4-7) Last Admin: 04/20/18 15:02 Dose: 600 mg Lorazepam (Ativan) 1 mg IVP ONCE PRN PRN Reason: Anxiety Last Admin: 04/20/18 10:57 Dose: 1 mg Meclizine HCl (Antivert) 25 mg PO TID [facility] Last Admin: 04/21/18 10:47 Dose: Not Given Pantoprazole Sodium (Protonix Ec Tab) 40 mg PO DAILY [facility] Last Admin: 04/20/18 10:26 Dose: 40 mg Pneumococcal Polyvalent Vaccine (Pneumovax 23 Vaccine) 0.5 ml IM .ONCE ONE Stop: 04/22/18 10:01 Tramadol HCl (Ultram) 50 mg PO Q8H PRN PRN Reason: Pain, severe (8-10) Last Admin: 04/21/18 06:54 Dose: 50 mg - Labs Labs: 04/21/18 06:52 04/21/18 06:52 - Additional Findings Additional findings: - Constitutional Appears: Non-toxic, No Acute Distress - Head Exam Head Exam: ATRAUMATIC, NORMAL INSPECTION, NORMOCEPHALIC - Eye Exam Eye Exam: EOMI, Normal appearance - ENT Exam ENT Exam: Mucous Membranes Moist - Neck Exam Neck Exam: Full ROM - Respiratory Exam Respiratory Exam: Clear to Ausculation Bilateral, NORMAL BREATHING PATTERN. absent: Rales, Rhonchi, Wheezes - Cardiovascular Exam Cardiovascular Exam: REGULAR RHYTHM, +S1, +S2 - GI/Abdominal Exam GI & Abdominal Exam: Soft. absent: Guarding, Rigid, Tenderness - Extremities Exam Additional comments: Lower extremities: +2 pitting edema bilaterally - Neurological Exam Neurological Exam: Alert, Awake, Oriented x3 - Psychiatric Exam Psychiatric exam: Normal Affect, Normal Mood - Skin Skin Exam: Dry, Normal Color, Warm Assessment and Plan - Assessment and Plan (Free Text) Plan: Intractable Dizziness -Neurology on consult, Dr Dudley, help appreciated Imaging: - CT head: moderate chronic white matter and basal nuclei ischemic changes (see full report) - MRI brain: no hydrocephalus noted, no acute changes - EEG ordered - ECHO ordered - Carotid Dopplers ordered Management: - Meclizine 25mg PO TID - Physical therapy ordered Dementia - Started Aricept 5mg PO QHS Abnormal UA - UA showing +3 leukocyte esterase and WBCs - Will start on Rocephin 1gm daily - F/U urine culture History of Iron deficiency Anemia - Hgb 9.7 on admission - Anemia studies ordered - IV iron ordered Bilateral lower extremity pain and swelling - Venous duplex ordered Low back pain - Motrin 600mg PO Q6H prn severe pain - Tramadol 50mg PO Q8H prn severe pain GI/DVT PPX - Protonix 40mg PO daily - Lovenox 40mg SC daily Disposition: Pending workup, anticipate discharge today or tomorrow. All management as per Navya Chavez DO PGY-2
[2018-04-21] MEDS: Pantoprazole 40 mg EC Tab PO SCH (11:41)
[2018-04-21] MEDS: Enoxaparin 40 mg Syringe SC SCH (11:43)
--- NOTE | 2018-04-21 16:48 | VASCLAB ---
Date of service: 04/21/2018 PROCEDURE: Carotid Duplex Exam. HISTORY: dizziness, syncope COMPARISON: None available. TECHNIQUE: Grayscale and duplex Doppler evaluation of the cervical carotid and vertebral arteries were performed. The common carotid, carotid bifurcations and cervical Internal Carotid Artery (ICA) and proximal External Carotid Artery (ECA) were evaluated. The vertebral arteries were evaluated for gross patency and flow direction. Report prepared by Aleks Youssef, BS, RVT FINDINGS: RIGHT CAROTID ARTERIES: 1. Common Carotid Artery: No significant focal plaque formation of the right common carotid artery. Maximum Peak Systolic velocity: 76 cm/sec: End-diastolic velocity 22 cm/sec. 2. Carotid Bifurcation: plaque formation. Maximum Peak Systolic velocity: 75 cm/sec: End-diastolic velocity 16 cm/sec. 3. Internal Carotid Artery: Plaque description: 3.1. Proximal Segment: Peak systolic velocity 93 cm/sec: End-diastolic velocity 22 cm/sec - % stenosis 0-15% 3.2. Middle Segment: Peak systolic velocity 86 cm/sec: End-diastolic velocity 29 cm/sec - % stenosis 0-15% 3.3. Distal Segment: Peak systolic velocity 79 cm/sec: End-diastolic velocity 22 cm/sec - % stenosis 0-15% 4. External Carotid Artery: No significant focal plaque formation. Peak systolic velocity 92 cm/sec 5. ICA/CCA Ratio: 1.2 LEFT CAROTID ARTERIES: 1. Common Carotid Artery: No significant focal plaque formation of the left common carotid artery. Maximum Peak Systolic velocity: 107 cm/sec: End-diastolic velocity 28 cm/sec. 2. Carotid Bifurcation: Calcific plaque formation. Maximum Peak Systolic velocity: 79 cm/sec: End-diastolic velocity 22 cm/sec. 3. Internal Carotid Artery: Minimal plaque formation of the left proximal ICA which does not result in hemodynamically significant stenosis. Plaque description: Calcific 3.1. Proximal Segment: Peak systolic velocity 94 cm/sec: End-diastolic velocity 20 cm/sec - % stenosis 0-15% 3.2. Middle Segment: Peak systolic velocity 59 cm/sec: End-diastolic velocity 18 cm/sec - % stenosis 0-15% 3.3. Distal Segment: Peak systolic velocity 108 cm/sec: End-diastolic velocity 32 cm/sec - % stenosis 0-15% 4. External Carotid Artery: No significant focal plaque formation. Peak systolic velocity 121 cm/sec 5. ICA/CCA Ratio: 1.0 VERTEBRAL ARTERIES: 1. Right Vertebral Artery: The right vertebral artery flow direction is antegrade. 2. Left Vertebral Artery: The left vertebral artery flow direction is antegrade. OTHER FINDINGS: 1. Right Brachial Blood pressure: 150 mmHg. 2. Left Brachial Blood pressure: 144 mmHg. 3. No atherosclerotic calcification present IMPRESSION: RIGHT: Duplex scan does not suggest hemodynamically significant stenosis of the right extracranial carotid arteries. LEFT: Duplex scan does not suggest hemodynamically significant stenosis of the left extracranial carotid arteries.
--- NOTE | 2018-04-21 16:48 | VASCLAB ---
Date of service: 04/21/2018 PROCEDURE: Lower Extremity Venous Duplex Exam. HISTORY: r/o DVT PRIORS: None. TECHNIQUE: Bilateral common femoral, femoral, popliteal and posterior tibial, peroneal and great saphenous veins were evaluated. Flow was assessed with color Doppler, compressibility, assessment of phasic flow and augmentation response. Report prepared by Aleks Youssef, BS, RVT FINDINGS: RIGHT: 1. Common Femoral Vein: 1.1. Compressibility - Fully compressible: Thrombus - None : Flow - Phasic: Augmentation -Normal: Reflux - None. 2. Femoral Vein: 2.1. Compressibility - Fully compressible: Thrombus - None : Flow - Phasic: Augmentation -Normal: Reflux - None. 3. Popliteal Vein: 3.1. Compressibility - Fully compressible: Thrombus - None : Flow - Phasic: Augmentation -Normal: Reflux - None. 4. Posterior Tibial Vein: 4.1. Compressibility - Fully compressible: Thrombus - None: Flow - Phasic: Augmentation -Normal: Reflux - None. 5. Peroneal Vein: 5.1. Compressibility - Fully compressible: Thrombus - None: Flow - Phasic: Augmentation -Normal: Reflux - None. 6. Great Saphenous Vein: 6.1. Compressibility - : Thrombus - : Flow - : Augmentation - : Reflux - . LEFT: 1. Common Femoral Vein: 1.1. Compressibility - Fully compressible: Thrombus - None: Flow - Phasic: Augmentation -Normal: Reflux - None. 2. Femoral Vein: 2.1. Compressibility - Fully compressible: Thrombus - None: Flow - Phasic: Augmentation -Normal: Reflux - None. 3. Popliteal Vein: 3.1. Compressibility - Fully compressible: Thrombus - None : Flow - Phasic: Augmentation -Normal: Reflux - None. 4. Posterior Tibial Vein: 4.1. Compressibility - Fully compressible: Thrombus - None: Flow - Phasic: Augmentation -Normal: Reflux - None. 5. Peroneal Vein: 5.1. Compressibility - Fully compressible: Thrombus - None: Flow - Phasic: Augmentation -Normal: Reflux - None. 6. Great Saphenous Vein: 6.1. Compressibility - : Thrombus - : Flow - : Augmentation - : Reflux - . OTHER FINDINGS: Right: None significant. Left: None significant. IMPRESSION: Right: No evidence of deep vein thrombosis of the right lower extremity. Normal valve function noted of the right side. Left: No evidence of deep vein thrombosis of the left lower extremity. Normal valve function noted of the left side.
--- NOTE | 2018-04-21 18:15 | CP.PCM.PN ---
Subjective - Date & Time of Evaluation Date of Evaluation: 04/21/18 Time of Evaluation: 10:00 - Subjective Subjective: clinically same Objective - Vital Signs/Intake and Output Vital Signs (last 24 hours): Temp Pulse Resp BP Pulse Ox 99.5 F 87 20 155/80 H 95 04/21/18 15:00 04/21/18 15:00 04/21/18 15:00 04/21/18 15:00 04/21/18 15:00 Intake and Output: 04/21/18 04/21/18 06:59 18:59 Intake Total 460 300 Balance 460 300 - Medications Medications: Current Medications Aspirin (Aspirin) 325 mg PO DAILY [facility] Donepezil HCl (Aricept) 5 mg PO HS [facility] Enoxaparin Sodium (Lovenox) 40 mg SC DAILY [facility] Last Admin: 04/21/18 11:43 Dose: 40 mg Home Med (Home Med) 1 unit OU HS [facility] Ferric Sodium Gluconate Complex 125 mg/ Sodium Chloride 110 mls @ 100 mls/hr IVPB Q24H [facility] Stop: 04/24/18 19:35 Last Admin: 04/20/18 19:19 Dose: 100 mls/hr Ceftriaxone Sodium 1 gm/ (Sodium Chloride) 100 mls @ 100 mls/hr IVPB DAILY [facility]; Protocol Last Admin: 04/21/18 11:43 Dose: 100 mls/hr Ibuprofen (Motrin Tab) 600 mg PO Q8H PRN PRN Reason: Pain, moderate (4-7) Last Admin: 04/20/18 15:02 Dose: 600 mg Lorazepam (Ativan) 1 mg IVP ONCE PRN PRN Reason: Anxiety Last Admin: 04/20/18 10:57 Dose: 1 mg Meclizine HCl (Antivert) 25 mg PO TID [facility] Last Admin: 04/21/18 13:40 Dose: 25 mg Pantoprazole Sodium (Protonix Ec Tab) 40 mg PO DAILY [facility] Last Admin: 04/21/18 11:41 Dose: 40 mg Pneumococcal Polyvalent Vaccine (Pneumovax 23 Vaccine) 0.5 ml IM .ONCE ONE Stop: 04/22/18 10:01 Tramadol HCl (Ultram) 50 mg PO Q8H PRN PRN Reason: Pain, severe (8-10) Last Admin: 04/21/18 06:54 Dose: 50 mg - Labs Labs: 04/21/18 06:52 04/21/18 06:52
[2018-04-21 20:10] LABS: CK-MB 2.97 ng/mL (0.0-3.38)
[2018-04-21] MEDS: Ferric Sodium Gluconat Complex 125 MG in Sodium Chloride 0.9% 100 ML IVPB SCH (20:54)
[2018-04-22 02:45] LABS: CK-MB 3.58 ng/mL (0.0-3.38)
[2018-04-22] MEDS ORDERED: Pneumococcal 23-Valent Vaccine IM ONE (10:00)
[2018-04-22] MEDS: Pantoprazole 40 mg EC Tab PO SCH (10:03)
[2018-04-22] MEDS: Enoxaparin 40 mg Syringe SC SCH (10:03)
[2018-04-22 11:41] LABS: CK-MB 4.12 ng/mL (0.0-3.38)
[2018-04-22] MEDS: Ferric Sodium Gluconat Complex 125 MG in Sodium Chloride 0.9% 100 ML IVPB SCH (19:14)
--- NOTE | 2018-04-22 21:11 | CP.PCM.PN ---
Subjective - Date & Time of Evaluation Date of Evaluation: 04/22/18 Time of Evaluation: 09:15 - Subjective Subjective: clinically same Objective - Vital Signs/Intake and Output Vital Signs (last 24 hours): Temp Pulse Resp BP Pulse Ox 98.2 F 80 20 148/70 96 04/22/18 15:00 04/22/18 17:06 04/22/18 15:00 04/22/18 15:00 04/22/18 15:00 Intake and Output: 04/22/18 04/23/18 18:59 06:59 Intake Total 300 Balance 300 - Medications Medications: Current Medications Aspirin (Aspirin) 325 mg PO DAILY [facility] Last Admin: 04/22/18 10:01 Dose: 325 mg Donepezil HCl (Aricept) 5 mg PO HS [facility] Last Admin: 04/22/18 21:09 Dose: 5 mg Enoxaparin Sodium (Lovenox) 40 mg SC DAILY [facility] Last Admin: 04/22/18 10:03 Dose: 40 mg Ferric Sodium Gluconate Complex 125 mg/ Sodium Chloride 110 mls @ 100 mls/hr IVPB Q24H [facility] Stop: 04/24/18 19:35 Last Admin: 04/22/18 19:14 Dose: 100 mls/hr Ceftriaxone Sodium 1 gm/ (Sodium Chloride) 100 mls @ 100 mls/hr IVPB DAILY [facility]; Protocol Last Admin: 04/22/18 10:00 Dose: 100 mls/hr Ibuprofen (Motrin Tab) 600 mg PO Q8H PRN PRN Reason: Pain, moderate (4-7) Last Admin: 04/20/18 15:02 Dose: 600 mg Lorazepam (Ativan) 1 mg IVP ONCE PRN PRN Reason: Anxiety Last Admin: 04/20/18 10:57 Dose: 1 mg Meclizine HCl (Antivert) 25 mg PO TID [facility] Last Admin: 04/22/18 17:59 Dose: 25 mg Pantoprazole Sodium (Protonix Ec Tab) 40 mg PO DAILY [facility] Last Admin: 04/22/18 10:03 Dose: 40 mg Tramadol HCl (Ultram) 50 mg PO Q8H PRN PRN Reason: Pain, severe (8-10) Last Admin: 04/21/18 06:54 Dose: 50 mg - Labs Labs: 04/21/18 06:52 04/21/18 06:52
[2018-04-23] MEDS: Enoxaparin 40 mg Syringe SC SCH (11:36)
[2018-04-23] MEDS: Pantoprazole 40 mg EC Tab PO SCH (11:36)
--- NOTE | 2018-04-23 14:28 | CT ---
Date of service: 04/23/2018 PROCEDURE: CT Abdomen and Pelvis without intravenous contrast HISTORY: Abdominal Pain COMPARISON: 04/17/2015 and 04/24/2016 TECHNIQUE: Without contrast.. Contrast dose: 0 Radiation dose: Total exam DLP = 944.08 mGy-cm. This CT exam was performed using one or more of the following dose reduction techniques: Automated exposure control, adjustment of the mA and/or kV according to patient size, and/or use of iterative reconstruction technique. FINDINGS: LOWER THORAX: No infiltrate/effusion. Cardiomegaly. LIVER: Unremarkable. No gross lesion or ductal dilatation. GALLBLADDER AND BILE DUCTS: Cholelithiasis. No mural thickening or pericholecystic fluid. PANCREAS: In the head of the pancreas there is a rounded fluid density mass measuring 2.3 cm in diameter. Its overall size has increased when compared to prior examination of 04/24/2016. No associated pancreatic ductal dilatation. SPLEEN: Unremarkable. ADRENALS: Left adrenal mass, 2.5 cm greatest dimension. The attenuation is 5 Hounsfield units. Findings consistent with adrenal adenoma. No change in appearance from 04/17/2015. KIDNEYS AND URETERS: Unremarkable. No hydronephrosis. No solid mass. VASCULATURE: Unremarkable. No aortic aneurysm. There is atherosclerotic calcification of the abdominal aorta BOWEL: Unremarkable. No obstruction. No gross mural thickening. APPENDIX: Unremarkable. Normal appendix. PERITONEUM: Unremarkable. No free fluid. No free air. LYMPH NODES: Unremarkable. No enlarged lymph nodes. BLADDER: Unremarkable. REPRODUCTIVE: Unremarkable postmenopausal uterus BONES: No fracture. Grade 1 anterolisthesis L4-5, unchanged from prior examination at, without evidence of spondylolysis. OTHER FINDINGS: None. IMPRESSION: Low-attenuation rounded mass in the pancreatic head increased in size when compared to examination of 04/24/2016. this may represent an IPMN or serous neoplasm. Pseudocyst is unlikely given the continuing interval increase in size. Stable left adrenal mass. Cholelithiasis without evidence of cholecystitis.
[2018-04-23] MEDS: Ferric Sodium Gluconat Complex 125 MG in Sodium Chloride 0.9% 100 ML IVPB SCH (18:47)
--- NOTE | 2018-04-23 21:25 | CP.PCM.PN ---
Subjective - Date & Time of Evaluation Date of Evaluation: 04/23/18 Time of Evaluation: 09:45 - Subjective Subjective: clinically same Objective - Vital Signs/Intake and Output Vital Signs (last 24 hours): Temp Pulse Resp BP Pulse Ox 98.0 F 90 20 150/85 94 L 04/23/18 15:00 04/23/18 15:00 04/23/18 15:00 04/23/18 15:00 04/23/18 15:00 Intake and Output: 04/23/18 04/24/18 18:59 06:59 Intake Total 200 Balance 200 - Medications Medications: Current Medications Aspirin (Aspirin) 325 mg PO DAILY [facility] Last Admin: 04/23/18 11:36 Dose: 325 mg Donepezil HCl (Aricept) 5 mg PO HS [facility] Last Admin: 04/22/18 21:09 Dose: 5 mg Enoxaparin Sodium (Lovenox) 40 mg SC DAILY [facility] Last Admin: 04/23/18 11:36 Dose: 40 mg Ferric Sodium Gluconate Complex 125 mg/ Sodium Chloride 110 mls @ 100 mls/hr IVPB Q24H [facility] Stop: 04/24/18 19:35 Last Admin: 04/23/18 18:47 Dose: 100 mls/hr Ceftriaxone Sodium 1 gm/ (Sodium Chloride) 100 mls @ 100 mls/hr IVPB DAILY [facility]; Protocol Last Admin: 04/23/18 11:36 Dose: Not Given Ibuprofen (Motrin Tab) 600 mg PO Q8H PRN PRN Reason: Pain, moderate (4-7) Last Admin: 04/23/18 17:33 Dose: 600 mg Lorazepam (Ativan) 1 mg IVP ONCE PRN PRN Reason: Anxiety Last Admin: 04/20/18 10:57 Dose: 1 mg Meclizine HCl (Antivert) 25 mg PO TID [facility] Last Admin: 04/23/18 17:35 Dose: 25 mg Pantoprazole Sodium (Protonix Ec Tab) 40 mg PO DAILY [facility] Last Admin: 04/23/18 11:36 Dose: 40 mg Tramadol HCl (Ultram) 50 mg PO Q8H PRN PRN Reason: Pain, severe (8-10) Last Admin: 04/21/18 06:54 Dose: 50 mg - Labs Labs: 04/21/18 06:52 04/21/18 06:52
--- NOTE | 2018-04-24 09:05 | CP.PCM.PN ---
Subjective - Date & Time of Evaluation Date of Evaluation: 04/24/18 Time of Evaluation: 09:05 - Subjective Subjective: PGY2 Medicine Note for Dr. Burt Nelson Patient seen and examined this morning at bedside. No acute events overnight. Patient is no longer experiencing any dizziness but is still complaining of abdominal pain. She denies any nausea or vomiting. The pain is located in the lower portion of her abdomen radiating to both sides with with the most pain being suprapubicly. Patient has no other complaints today. Objective - Vital Signs/Intake and Output Vital Signs (last 24 hours): Temp Pulse Resp BP Pulse Ox 99.3 F 76 20 158/83 H 97 04/24/18 07:30 04/24/18 07:30 04/24/18 07:30 04/24/18 07:30 04/24/18 07:30 Intake and Output: 04/24/18 04/24/18 06:59 18:59 Intake Total 580 Balance 580 - Medications Medications: Current Medications Aspirin (Aspirin) 325 mg PO DAILY [facility] Last Admin: 04/23/18 11:36 Dose: 325 mg Donepezil HCl (Aricept) 5 mg PO HS [facility] Last Admin: 04/23/18 21:41 Dose: 5 mg Enoxaparin Sodium (Lovenox) 40 mg SC DAILY [facility] Last Admin: 04/23/18 11:36 Dose: 40 mg Ferric Sodium Gluconate Complex 125 mg/ Sodium Chloride 110 mls @ 100 mls/hr IV PB Q24H [facility] Stop: 04/24/18 19:35 Last Admin: 04/23/18 18:47 Dose: 100 mls/hr Ceftriaxone Sodium 1 gm/ (Sodium Chloride) 100 mls @ 100 mls/hr IVPB DAILY [facility]; Protocol Last Admin: 04/23/18 11:36 Dose: Not Given Ibuprofen (Motrin Tab) 600 mg PO Q8H PRN PRN Reason: Pain, moderate (4-7) Last Admin: 04/23/18 17:33 Dose: 600 mg Lorazepam (Ativan) 1 mg IVP ONCE PRN PRN Reason: Anxiety Last Admin: 04/20/18 10:57 Dose: 1 mg Meclizine HCl (Antivert) 25 mg PO TID [facility] Last Admin: 04/23/18 17:35 Dose: 25 mg Pantoprazole Sodium (Protonix Ec Tab) 40 mg PO DAILY [facility] Last Admin: 04/23/18 11:36 Dose: 40 mg Tramadol HCl (Ultram) 50 mg PO Q8H PRN PRN Reason: Pain, severe (8-10) Last Admin: 04/24/18 06:08 Dose: 50 mg - Labs Labs: 04/21/18 06:52 04/21/18 06:52 - Constitutional Appears: Non-toxic, No Acute Distress - Head Exam Head Exam: ATRAUMATIC, NORMOCEPHALIC - Eye Exam Eye Exam: EOMI, Normal appearance, PERRL - ENT Exam ENT Exam: Mucous Membranes Moist - Respiratory Exam Respiratory Exam: Clear to Ausculation Bilateral, NORMAL BREATHING PATTERN. absent: Accessory Muscle Use, Rales, Rhonchi, Wheezes, Respiratory Distress - Cardiovascular Exam Cardiovascular Exam: REGULAR RHYTHM, +S1, +S2 - GI/Abdominal Exam GI & Abdominal Exam: Guarding (suprapubic), Soft, Tenderness (suprapubic> RLQ/LLQ), Normal Bowel Sounds. absent: Distended, Firm, Rigid, Rebound - Extremities Exam Extremities Exam: Pedal Edema (2+pitting edema b/l). absent: Calf Tenderness - Neurological Exam Neurological Exam: Alert, Awake, Oriented x3 - Psychiatric Exam Psychiatric exam: Normal Affect, Normal Mood - Skin Skin Exam: Dry, Warm Assessment and Plan - Assessment and Plan (Free Text) Plan: Abdominal Pain likely 2/2 to UTI UTI Abd/Pelvis CT w/o contrast 04/23/18: * Low-attenuation rounded mass in the pancreatic head increased in size when compared to examination of 04/24/2016. this may represent an IPMN or serous neoplasm. Pseudocyst is unlikely given the continuing interval increase in size. Stable left adrenal mass. Cholelithiasis without evidence of cholecys titis. - UA showing +3 leukocyte esterase and WBCs - Urine Culture - Beta Hemolytic Strep Group B * resistant to Clindamycin - Rocephin 1gm daily (started on 04/21/18) Vertigo - Neurology on consult, Dr Dudley, help appreciated. - Neuro-Surgeon consult, Dr. Sanderson, help appreciated * MRI does not show hydrocechalus * Pt admitted for vertigo * If there is a concern for NPH please refer to office * Does not need to remain in hospital for this evaluation Imaging: - CT head: moderate chronic white matter and basal nuclei ischemic changes (see full report) - MRI brain: no hydrocephalus noted, no acute changes - Carotid Dopplers: normal b/l - EEG ordered - ECHO pending official report Management: - Meclizine 25mg PO TID - Aspirin 325mg PO Daily - Physical therapy ordered Dementia - Aricept 5mg PO QHS History of Iron deficiency Anemia - Hgb 9.7 on admission - Iron studies * Iron 24 * % sat 5 * TIBC 446 * Ferritin 6.0 - IV iron 4 out of 5 bags given Low back pain - Motrin 600mg PO Q6H prn severe pain - Tramadol 50mg PO Q8H prn severe pain GI/DVT PPX - Protonix 40mg PO daily - Lovenox 40mg SC daily Case discussed with attending. All medical management per Dr. Burt Hernández Peter PGY2
--- NOTE | 2018-04-24 10:04 | EEG ---
DATE: 04/21/2018 This is a 16-channel electroencephalogram of awake and drowsy adult. During the study, photic stimulation was performed. Hyperventilation was not performed. The resting electroencephalogram consists of 20 to 30 microvolt, diffuse 7 to 9 Hz high theta mixed with low alpha activities seen in parietal and occipital leads. Anterior fast activity superimposed with 2 to 3 Hz of delta activity seen. The photic stimulation did not evoke driving response noted at 2 to 20 Hz. IMPRESSION: This is a normal electroencephalogram of awake and drowsy adult. During the study, neither electroencephalographic paroxysmal activities nor focal slowing noted. Alfonso Dudley MD
[2018-04-24] MEDS: Pantoprazole 40 mg EC Tab PO SCH (10:56)
[2018-04-24] MEDS: Enoxaparin 40 mg Syringe SC SCH (10:56)
--- NOTE | 2018-04-24 13:44 | CARD ---
APPROVED REPORT Date of service: 04/21/2018 EXAM: Two-dimensional and M-mode echocardiogram with Doppler and color Doppler. INDICATION Dizziness and Vertigo Murmur RISK FACTORS Hypertension 2D DIMENSIONS IVSd0.7 (0.7-1.1cm)Aortic Root (2D)2.6 (2.0-3.7cm) LVDd4.3 (3.9-5.9cm)PWd0.8 (0.7-1.1cm) LA Hktkoh38 (18-58mL)LVDs2.4 (2.5-4.0cm) FS (%) 43.6 %LVEF (%)75.2 (>50%) LVEF (Whalen's)71.39 %IVC0.00 cm M-Mode DIMENSIONS Left Atrium (MM)4.16 (2.5-4.0cm)IVSd0.80 (0.7-1.1cm) Aortic Root2.39 (2.2-3.7cm)LVDd4.72 (4.0-5.6cm) Aortic Cusp Exc.1.67 (1.5-2.0cm)PWd0.90 (0.7-1.1cm) FS (%) 46 %LVDs2.53 (2.0-3.8cm) LVEF (%)78 (>50%) Mitral Valve MV E Yhkknmry04.2cm/sMV A Luyzsmuy259.8cm/sE/A ratio0.7 TDI Lateral E' Peak V4.67cm/sMedial E' Peak V8.87cm/sE/Lateral E'19.5 E/Medial E'10.3 Tricuspid Valve TR Peak Ljywcxhi265uk/sTR Peak Gr.[id number] LEFT VENTRICLE The left ventricle is normal size. There is normal left ventricular wall thickness. The Ejection Fraction is 65-70%. There is normal LV segmental wall motion. Transmitral Doppler flow pattern is Grade I-abnormal relaxation pattern. The left atrial pressure is mildly elevated. RIGHT VENTRICLE The right ventricle is normal size. The right ventricular systolic function is normal. ATRIA The left atrium is mildly dilated. The right atrium size is normal. The interatrial septum is intact with no evidence for an atrial septal defect. AORTIC VALVE The aortic valve is mildly calcified. The aortic valve is trileaflet. No aortic regurgitation is present. MITRAL VALVE The mitral valve is thickened but opens well. Mitral annular calcification is moderate. Mitral regurgitation is mild. TRICUSPID VALVE The tricuspid valve is normal in structure. There is moderate tricuspid regurgitation. Right ventricular systolic pressure is estimated at 46 mmHg. There is mild-moderate pulmonary hypertension. PULMONIC VALVE The pulmonary valve is normal in structure. There is mild pulmonic valvular regurgitation. GREAT VESSELS The aortic root is normal size. The aortic root displays mild sclerocalcific changes of the aortic root. The IVC is normal in size and collapses >50% with inspiration. PERICARDIAL EFFUSION There is no pericardial effusion. <Conclusion> The left ventricle is normal size. The Ejection Fraction is 65-70%. Transmitral Doppler flow pattern is Grade I-abnormal relaxation pattern. The left atrial pressure is mildly elevated. The left atrium is mildly dilated. Mitral regurgitation is mild. There is moderate tricuspid regurgitation. Right ventricular systolic pressure is estimated at 46 mmHg. There is mild-moderate pulmonary hypertension. The aortic root is normal size. The aortic root displays mild sclerocalcific changes of the aortic root. There is no pericardial effusion.
--- NOTE | 2018-04-24 15:44 | CP.PCM.CON ---
History of Present Illness - History of Present Illness History of Present Illness: asked to see pt for panc mass 77 yo female h/o OMSLBP- admiotted with vertigo. Head Ct showes hydrocephalus. Pt reported abdom pain x 2 days- vague mid abdom pain- poorly described. CT abdomen shows a mass in pancreas. PMH- 2016- CT abdomen= pancreas mass. 2015- EGD- gastritis, colonsocopy- biopsies neg. Review of Systems - Constitutional Constitutional: absent: Weight Loss - Cardiovascular Cardiovascular: absent: Chest Pain, Dyspnea - Respiratory Respiratory: absent: Dyspnea, Hemoptysis - Gastrointestinal Gastrointestinal: Abdominal Pain. absent: Diarrhea, Dysphagia, Heartburn, Hematemesis, Hematochezia, Melena, Odynophagia, Vomiting - Genitourinary Genitourinary: absent: Hematuria - Musculoskeletal Musculoskeletal: absent: Muscle Weakness - Integumentary Integumentary: absent: Lesions - Psychiatric Psychiatric: Confusion. absent: Suicidal Ideation Past Patient History - Infectious Disease Hx of Infectious Diseases: None - Tetanus Immunizations Tetanus Immunization: Up to Date - Past Medical History & Family History Past Medical History?: Yes - Past Social History Smoking Status: Never Smoked - CARDIAC Hx Hypertension: Yes - PULMONARY Hx Asthma: Yes (NEVER HOSPITALIZED) - NEUROLOGICAL Hx Dizziness: Yes ("ON AND OFF") - HEENT Hx HEENT Problems: Yes - RENAL Hx Chronic Kidney Disease: No - ENDOCRINE/METABOLIC Hx Endocrine Disorders: No - HEMATOLOGICAL/ONCOLOGICAL Hx Anemia: Yes - INTEGUMENTARY Hx Dermatological Problems: No - MUSCULOSKELETAL/RHEUMATOLOGICAL Hx Arthritis: Yes - GASTROINTESTINAL Hx Gastritis: Yes - GENITOURINARY/GYNECOLOGICAL Hx Genitourinary Disorders: No - PSYCHIATRIC Hx Substance Use: No - SURGICAL HISTORY Hx Surgeries: Yes Hx Cataract Extraction: Yes (BILAT. ) Other/Comment: HX:Left knee arthroscopy 2000. HX: Lasha. carpal tunnel surgery. HX: HARDWARE RIGHT METARTASAL(SCREW) - ANESTHESIA Hx Anesthesia: Yes Hx Anesthesia Reactions: No Hx Malignant Hyperthermia: No Meds Allergies/Adverse Reactions: Allergies Allergy/AdvReac Type Severity Reaction Status Date / Time atorvastatin Allergy Verified 04/20/18 02:38 - Medications Medications: Current Medications Aspirin (Aspirin) 325 mg PO DAILY [facility] Last Admin: 04/24/18 10:56 Dose: 325 mg Donepezil HCl (Aricept) 5 mg PO HS [facility] Last Admin: 04/23/18 21:41 Dose: 5 mg Enoxaparin Sodium (Lovenox) 40 mg SC DAILY [facility] Last Admin: 04/24/18 10:56 Dose: 40 mg Ferric Sodium Gluconate Complex 125 mg/ Sodium Chloride 110 mls @ 100 mls/hr IVPB Q24H [facility] Stop: 04/24/18 19:35 Last Admin: 04/23/18 18:47 Dose: 100 mls/hr Ceftriaxone Sodium 1 gm/ (Sodium Chloride) 100 mls @ 100 mls/hr IVPB DAILY [facility]; Protocol Last Admin: 04/24/18 10:55 Dose: 100 mls/hr Ibuprofen (Motrin Tab) 600 mg PO Q8H PRN PRN Reason: Pain, moderate (4-7) Last Admin: 04/23/18 17:33 Dose: 600 mg Lorazepam (Ativan) 1 mg IVP ONCE PRN PRN Reason: Anxiety Last Admin: 04/20/18 10:57 Dose: 1 mg Meclizine HCl (Antivert) 25 mg PO TID [facility] Last Admin: 04/24/18 14:00 Dose: 25 mg Pantoprazole Sodium (Protonix Ec Tab) 40 mg PO DAILY [facility] Last Admin: 04/24/18 10:56 Dose: 40 mg Tramadol HCl (Ultram) 50 mg PO Q8H PRN PRN Reason: Pain, severe (8-10) Last Admin: 04/24/18 06:08 Dose: 50 mg Physical Exam - Constitutional Appears: Non-toxic - Respiratory Exam Respiratory Exam: Clear to Auscultation Bilateral - Cardiovascular Exam Cardiovascular Exam: RRR - GI/Abdominal Exam GI & Abdominal Exam: Normal Bowel Sounds, Soft. absent: Distended, Guarding, Mass, Rigid - Extremities Exam Extremities exam: Negative for: calf tenderness - Neurological Exam Neurological exam: Alert Additional comments: awake. Ox 1 Results - Vital Signs Recent Vital Signs: Last Vital Signs Temp 99.3 F 04/24/18 07:30 Pulse 76 04/24/18 07:30 Resp 20 04/24/18 07:30 BP 158/83 H 04/24/18 07:30 Pulse Ox 97 04/24/18 07:30 - Labs Result Diagrams: 04/21/18 06:52 04/21/18 06:52 Assessment & Plan (1) Hydrocephalus in adult Assessment and Plan: followed by Neurology Status: Acute (2) Vertigo Assessment and Plan: hydroceph Status: Acute Priority: Medium (3) Abdominal pain Assessment and Plan: Vague. Non specific. Doubt from panc mass. Check BMs. Had EGD 04/15, and colonosocpy 2014 Status: Acute (4) Anemia Assessment and Plan: chr Status: Acute Priority: High (5) Cystic mass of pancreas Assessment and Plan: Similar to before. Seen on Ct 2016. Consider IPMN. Rec_: outpatient follow up . Will need serial Ct's Status: Acute Priority: High (6) HTN (hypertension) Status: Acute (7) UTI (urinary tract infection) Status: Acute
[2018-04-24] MEDS: Ferric Sodium Gluconat Complex 125 MG in Sodium Chloride 0.9% 100 ML IVPB SCH (17:36)
--- NOTE | 2018-04-24 17:46 | CP.PCM.PN ---
Subjective - Date & Time of Evaluation Date of Evaluation: 04/24/18 Time of Evaluation: 10:00 - Subjective Subjective: clinically same Objective - Vital Signs/Intake and Output Vital Signs (last 24 hours): Temp Pulse Resp BP Pulse Ox 100.2 F H 77 20 146/77 95 04/24/18 15:03 04/24/18 15:03 04/24/18 15:03 04/24/18 15:03 04/24/18 15:03 Intake and Output: 04/24/18 04/24/18 06:59 18:59 Intake Total 580 Balance 580 - Medications Medications: Current Medications Aspirin (Aspirin) 325 mg PO DAILY [facility] Last Admin: 04/24/18 10:56 Dose: 325 mg Donepezil HCl (Aricept) 5 mg PO HS [facility] Last Admin: 04/23/18 21:41 Dose: 5 mg Enoxaparin Sodium (Lovenox) 40 mg SC DAILY [facility] Last Admin: 04/24/18 10:56 Dose: 40 mg Ferric Sodium Gluconate Complex 125 mg/ Sodium Chloride 110 mls @ 100 mls/hr IVPB Q24H [facility] Stop: 04/24/18 19:35 Last Admin: 04/24/18 17:36 Dose: 100 mls/hr Ceftriaxone Sodium 1 gm/ (Sodium Chloride) 100 mls @ 100 mls/hr IVPB DAILY [facility]; Protocol Last Admin: 04/24/18 10:55 Dose: 100 mls/hr Ibuprofen (Motrin Tab) 600 mg PO Q8H PRN PRN Reason: Pain, moderate (4-7) Last Admin: 04/23/18 17:33 Dose: 600 mg Lorazepam (Ativan) 1 mg IVP ONCE PRN PRN Reason: Anxiety Last Admin: 04/20/18 10:57 Dose: 1 mg Meclizine HCl (Antivert) 25 mg PO TID [facility] Last Admin: 04/24/18 17:36 Dose: 25 mg Pantoprazole Sodium (Protonix Ec Tab) 40 mg PO DAILY [facility] Last Admin: 04/24/18 10:56 Dose: 40 mg Tramadol HCl (Ultram) 50 mg PO Q8H PRN PRN Reason: Pain, severe (8-10) Last Admin: 04/24/18 06:08 Dose: 50 mg - Labs Labs: 04/21/18 06:52 04/21/18 06:52 - Constitutional Appears: Well - Head Exam Head Exam: ATRAUMATIC, NORMAL INSPECTION, NORMOCEPHALIC - Eye Exam Eye Exam: EOMI, Normal appearance, PERRL Pupil Exam: NORMAL ACCOMODATION, PERRL - ENT Exam ENT Exam: Mucous Membranes Moist, Normal Exam - Neck Exam Neck Exam: Full ROM, Normal Inspection. absent: Lymphadenopathy - Respiratory Exam Respiratory Exam: Decreased Breath Sounds - Cardiovascular Exam Cardiovascular Exam: REGULAR RHYTHM, +S1, +S2 - GI/Abdominal Exam GI & Abdominal Exam: Soft, Diminished Bowel Sounds - Rectal Exam Rectal Exam: Deferred
[2018-04-25] MEDS: Pantoprazole 40 mg EC Tab PO SCH (10:02)
[2018-04-25] MEDS: Enoxaparin 40 mg Syringe SC SCH (10:03)
--- NOTE | 2018-04-25 11:55 | CP.PCM.PN ---
Subjective - Date & Time of Evaluation Date of Evaluation: 04/25/18 Time of Evaluation: 11:55 - Subjective Subjective: COVERING DR RUIZ/STEFFANY Pt c/o some LLQ pain on and off. No N/V/C/D. Poor appetite Objective - Vital Signs/Intake and Output Vital Signs (last 24 hours): Temp Pulse Resp BP Pulse Ox 98.8 F 67 20 137/75 95 04/25/18 07:00 04/25/18 07:00 04/25/18 07:00 04/25/18 07:00 04/25/18 07:00 - Medications Medications: Current Medications Aspirin (Aspirin) 325 mg PO DAILY [facility] Last Admin: 04/25/18 10:02 Dose: 325 mg Donepezil HCl (Aricept) 5 mg PO HS [facility] Last Admin: 04/24/18 21:44 Dose: 5 mg Enoxaparin Sodium (Lovenox) 40 mg SC DAILY [facility] Last Admin: 04/25/18 10:03 Dose: 40 mg Ceftriaxone Sodium 1 gm/ (Sodium Chloride) 100 mls @ 100 mls/hr IVPB DAILY [facility]; Protocol Last Admin: 04/25/18 10:03 Dose: 100 mls/hr Ibuprofen (Motrin Tab) 600 mg PO Q8H PRN PRN Reason: Pain, moderate (4-7) Last Admin: 04/24/18 21:45 Dose: 600 mg Lorazepam (Ativan) 1 mg IVP ONCE PRN PRN Reason: Anxiety Last Admin: 04/20/18 10:57 Dose: 1 mg Meclizine HCl (Antivert) 25 mg PO TID [facility] Last Admin: 04/25/18 10:02 Dose: 25 mg Pantoprazole Sodium (Protonix Ec Tab) 40 mg PO DAILY [facility] Last Admin: 04/25/18 10:02 Dose: 40 mg Tramadol HCl (Ultram) 50 mg PO Q8H PRN PRN Reason: Pain, severe (8-10) Last Admin: 04/24/18 20:38 Dose: 50 mg - Labs Labs: 04/21/18 06:52 04/21/18 06:52 - Constitutional Appears: No Acute Distress - Head Exam Head Exam: ATRAUMATIC, NORMOCEPHALIC - Respiratory Exam Respiratory Exam: NORMAL BREATHING PATTERN - Cardiovascular Exam Cardiovascular Exam: REGULAR RHYTHM - GI/Abdominal Exam GI & Abdominal Exam: Soft, Tenderness, Normal Bowel Sounds. absent: Mass, Rebound - Extremities Exam Extremities Exam: Normal Inspection Assessment and Plan (1) LLQ pain Assessment & Plan: Pain appears to be related to mild constipation Encourage po intake and increase fiber Status: Acute (2) Pancreatic mass Assessment & Plan: Further work up per Dr Ruiz for likely IPMN. Serial CT's +/- EUS/FNA if needed. Status: Acute
--- NOTE | 2018-04-25 20:39 | CP.PCM.PN ---
Subjective - Date & Time of Evaluation Date of Evaluation: 04/25/18 Time of Evaluation: 09:15 - Subjective Subjective: clinically same Objective - Vital Signs/Intake and Output Vital Signs (last 24 hours): Temp Pulse Resp BP Pulse Ox 99.9 F H 74 20 154/77 H 96 04/25/18 16:35 04/25/18 16:35 04/25/18 16:35 04/25/18 16:35 04/25/18 16:35 - Medications Medications: Current Medications Acetaminophen (Tylenol 325mg Tab) 650 mg PO Q6 PRN PRN Reason: Fever >100.4 F Aspirin (Aspirin) 325 mg PO DAILY [facility] Last Admin: 04/25/18 10:02 Dose: 325 mg Donepezil HCl (Aricept) 5 mg PO HS [facility] Last Admin: 04/24/18 21:44 Dose: 5 mg Enoxaparin Sodium (Lovenox) 40 mg SC DAILY [facility] Last Admin: 04/25/18 10:03 Dose: 40 mg Ceftriaxone Sodium 1 gm/ (Sodium Chloride) 100 mls @ 100 mls/hr IVPB DAILY [facility]; Protocol Last Admin: 04/25/18 10:03 Dose: 100 mls/hr Ibuprofen (Motrin Tab) 600 mg PO Q8H PRN PRN Reason: Pain, moderate (4-7) Last Admin: 04/24/18 21:45 Dose: 600 mg Lorazepam (Ativan) 1 mg IVP ONCE PRN PRN Reason: Anxiety Last Admin: 04/20/18 10:57 Dose: 1 mg Meclizine HCl (Antivert) 25 mg PO TID [facility] Last Admin: 04/25/18 18:10 Dose: 25 mg Pantoprazole Sodium (Protonix Ec Tab) 40 mg PO DAILY [facility] Last Admin: 04/25/18 10:02 Dose: 40 mg Tramadol HCl (Ultram) 50 mg PO Q8H PRN PRN Reason: Pain, severe (8-10) Last Admin: 04/24/18 20:38 Dose: 50 mg - Labs Labs: 04/21/18 06:52 04/21/18 06:52 - Constitutional Appears: Well - Head Exam Head Exam: ATRAUMATIC, NORMAL INSPECTION, NORMOCEPHALIC - Eye Exam Eye Exam: EOMI, Normal appearance, PERRL Pupil Exam: NORMAL ACCOMODATION, PERRL - ENT Exam ENT Exam: Mucous Membranes Moist, Normal Exam - Neck Exam Neck Exam: Full ROM, Normal Inspection. absent: Lymphadenopathy - Respiratory Exam Respiratory Exam: Decreased Breath Sounds - Cardiovascular Exam Cardiovascular Exam: REGULAR RHYTHM, +S1, +S2 - GI/Abdominal Exam GI & Abdominal Exam: Soft, Diminished Bowel Sounds - Rectal Exam Rectal Exam: Deferred
[2018-04-26] MEDS: Pantoprazole 40 mg EC Tab PO SCH (09:35)
[2018-04-26] MEDS: Enoxaparin 40 mg Syringe SC SCH (09:35)
[2018-04-26 16:25] VITALS: BP 144/75; PULSE 81; RESP 20; TEMP 98.1; O2SAT 95
--- NOTE | 2018-04-26 17:05 | CP.PCM.PN ---
Subjective - Date & Time of Evaluation Date of Evaluation: 04/26/18 Time of Evaluation: 10:00 - Subjective Subjective: clinically same Objective - Vital Signs/Intake and Output Vital Signs (last 24 hours): Temp Pulse Resp BP Pulse Ox 98.1 F 81 20 144/75 95 04/26/18 16:23 04/26/18 16:23 04/26/18 16:23 04/26/18 16:23 04/26/18 16:23 Intake and Output: 04/26/18 04/26/18 06:59 18:59 Intake Total 800 Balance 800 - Medications Medications: Current Medications Acetaminophen (Tylenol 325mg Tab) 650 mg PO Q6 PRN PRN Reason: Fever >100.4 F Aspirin (Aspirin) 325 mg PO DAILY [facility] Last Admin: 04/26/18 09:35 Dose: 325 mg Donepezil HCl (Aricept) 5 mg PO HS [facility] Last Admin: 04/25/18 21:13 Dose: 5 mg Enoxaparin Sodium (Lovenox) 40 mg SC DAILY [facility] Last Admin: 04/26/18 09:35 Dose: 40 mg Ibuprofen (Motrin Tab) 600 mg PO Q8H PRN PRN Reason: Pain, moderate (4-7) Last Admin: 04/25/18 21:13 Dose: 600 mg Lorazepam (Ativan) 1 mg IVP ONCE PRN PRN Reason: Anxiety Last Admin: 04/20/18 10:57 Dose: 1 mg Meclizine HCl (Antivert) 25 mg PO TID [facility] Last Admin: 04/26/18 13:21 Dose: 25 mg Pantoprazole Sodium (Protonix Ec Tab) 40 mg PO DAILY [facility] Last Admin: 04/26/18 09:35 Dose: 40 mg Tramadol HCl (Ultram) 50 mg PO Q8H PRN PRN Reason: Pain, severe (8-10) Last Admin: 04/24/18 20:38 Dose: 50 mg - Labs Labs: 04/21/18 06:52 04/21/18 06:52 - Constitutional Appears: Well - Head Exam Head Exam: ATRAUMATIC, NORMAL INSPECTION, NORMOCEPHALIC - Eye Exam Eye Exam: EOMI, Normal appearance, PERRL Pupil Exam: NORMAL ACCOMODATION, PERRL - ENT Exam ENT Exam: Mucous Membranes Moist, Normal Exam - Neck Exam Neck Exam: Full ROM, Normal Inspection. absent: Lymphadenopathy - Respiratory Exam Respiratory Exam: Decreased Breath Sounds - Cardiovascular Exam Cardiovascular Exam: REGULAR RHYTHM, +S1, +S2 - GI/Abdominal Exam GI & Abdominal Exam: Soft, Diminished Bowel Sounds - Rectal Exam Rectal Exam: Deferred
== END 2018-04-26 19:44 | disposition home or self-care (01) | DRG 149 ==
LOC: C.ER 02:23 → C.6T 04:55
PROVIDERS: ADMIT Internal Medicine Nephrology; ATTEND Internal Medicine Nephrology
DX: R42 Dizziness and giddiness (principal); K86.9 Disease of pancreas, unspecified; G91.9 Hydrocephalus, unspecified; N39.0 Urinary tract infection, site not specified; I10 Essential (primary) hypertension; J45.909 Unspecified asthma, uncomplicated; D64.9 Anemia, unspecified; M54.12 Radiculopathy, cervical region; F03.90 Unspecified dementia, unspecified severity, without behavioral disturbance, psychotic disturbance, mood disturbance, and anxiety; G89.29 Other chronic pain; M81.0 Age-related osteoporosis without current pathological fracture